=== PATIENT | male | born 1960 | race Caucasian/White ===

== ENCOUNTER → 2016-10-18 | Outpatient (CLI) | payer OTHER ==
[~2016-10-18] MED LIST: REGADENOSON INJ 0.4 MG/5 ML DISP.SYRIN IV ONE
--- NOTE | 2016-10-19 19:37 | DRAGON STRESS TEST REPORT ---
Intravenous LexiScan Cardiolite stress test using single photon emmision computerized tomographic. Date of procedure: 10/18/2016. Ordering Provider: Dr. Reg Murphy. Patient Status.: Outpatient. Primary CARE Physician: [facility]. [facility], [place]. Indication: Chest Pain. Patient has a history of coronary angioplasty and stent placement. Coronary risk factors: Age, diabetes mellitus type 2, hypertension, dyslipidemia, and tobacco abuse disorder Resting EKG: Sinus Rhythm. Within normal limits. Stress EKG: No changes of ischemia. The patient had no chest pain or discomfort, and there were no arrhythmias seen. Reason for termination: Protocol. Conclusions: Normal EKG and hemodynamic response to IV LexiScan. Nuclear data: At rest the patient was given 9.94 millicuries of technetium 99 sestamibi injected intravenously. As per protocol rest non gated SPECT images were obtained. Subsequently the patient was given intravenous LexiScan at a dose of 0.4 mg in 5 mL intravenously, followed by flush with normal saline. Subsequently the stress dose of 32.6 millicuries of technetium 99 sestamibi was injected intravenously. As per protocol stress gated images were obtained. Nuclear interpretation: Review of images showed that all segments of the myocardium had normal perfusion at rest, and normal perfusion post stress with IV LexiScan. All segments of the myocardium had normal motion, contraction, and thickening by gated study. T. I D. ratio was normal at 1.04 computer read rest, and stress left ventricular ejection fraction were 48 %, and 48 % respectively. Visually both the stress and rest ejection fractions were normal, and greater than 55%. 1. There is no scintigraphic evidence of LexiScan induced myocardial ischemia. 2. There is no scintigraphic evidence of myocardial infarction/scar. Recommendations: Aggressive treatment of coronary artery disease, and aggressive risk factor modification, and treating the underlying co- morbidities. Correlate clinically. MTDD
== END ==
LOC: RAD 07:13
PROVIDERS: ATTEND Internal Medicine Cardiovascular Disease
DX: I25.10 Atherosclerotic heart disease of native coronary artery without angina pectoris (principal); Z98.61 Coronary angioplasty status; R07.9 Chest pain, unspecified; I10 Essential (primary) hypertension; E78.5 Hyperlipidemia, unspecified; E11.9 Type 2 diabetes mellitus without complications
CPT/HCPCS: 93017; 78452; A9500; J2785; Q9969

== ENCOUNTER → 2016-11-02 | Outpatient (CLI) | payer OTHER ==
[2016-11-02 11:29] LABS: ABSOLUTE EOSINOPHILS # (AUTO) 0.1 10^3/uL (0.0-0.6); ABSOLUTE LYMPHOCYTES (AUTO) 1.6 10^3/uL (0.5-4.7); ABSOLUTE MONOCYTES (AUTO) 0.5 10^3/uL (0.1-1.4); ABSOLUTE NEUT (AUTO) 6.4 10^3/uL (1.7-8.2); BASOPHILS % (AUTO) 0.5 % (0-2); HEMATOCRIT 38.9 % (37.9-51.0); HEMOGLOBIN 13.2 g/dL (13.5-17.0); HGB HCT DIFFERENCE 0.7; LYMPHOCYTES % (AUTO) 18.4 % (13-45); MEAN CORPUSCULAR HEMOGLOBIN 29.6 pg (27.0-33.4); MEAN CORPUSCULAR HGB CONC 33.8 g/dL (32.0-36.0); MEAN CORPUSCULAR VOLUME 88 fl (80-97); MONOCYTES % (AUTO) 5.3 % (3-13); RED BLOOD COUNT 4.45 10^6/uL (4.35-5.55); RED CELL DISTRIBUTION WIDTH 15.4 % (11.5-14.0); SEGMENTED NEUTROPHILS % (AUTO) 74.8 % (42-78); WHITE BLOOD COUNT 8.5 10^3/uL (4.0-10.5)
[2016-11-02 11:53] LABS: ANION GAP 9 (5-19); BLOOD UREA NITROGEN 13 mg/dL (7-20); CALCIUM 9.1 mg/dL (8.4-10.2); CARBON DIOXIDE 27 mmol/L (22-30); CHLORIDE 104 mmol/L (98-107); CREATININE RESULT 0.74 mg/dL (0.52-1.25); GLUCOSE 114 mg/dL (75-110); POTASSIUM 3.9 mmol/L (3.6-5.0); SODIUM 139.8 mmol/L (137-145)
--- NOTE | 2016-11-02 11:57 | RADIOLOGY REPORT (SQ) ---
EXAM DESCRIPTION: CHEST PA/LATERAL COMPLETED DATE/TIME: 11/02/2016 11:10 am REASON FOR STUDY: PRE OP COMPARISON: October 2014 EXAM PARAMETERS: NUMBER OF VIEWS: two views TECHNIQUE: Digital Frontal and Lateral radiographic views of the chest acquired. RADIATION DOSE: NA LIMITATIONS: none FINDINGS: LUNGS AND PLEURA: No opacities, masses or pneumothorax. No pleural effusion. MEDIASTINUM AND HILAR STRUCTURES: No masses or contour abnormalities. HEART AND VASCULAR STRUCTURES: Heart normal size. No evidence for failure. BONES: No acute findings. HARDWARE: Patient is status post median sternotomy. OTHER: No other significant finding. IMPRESSION: NO SIGNIFICANT RADIOGRAPHIC FINDING IN THE CHEST. TECHNICAL DOCUMENTATION: JOB ID: [id number] [employer]- All Rights Reserved
--- NOTE | 2016-11-02 18:44 | EKG REPORT ---
SEVERITY:- ABNORMAL ECG - SINUS OR ECTOPIC ATRIAL RHYTHM NONSPECIFIC INTRAVENTRICULAR CONDUCTION DELAY INFERIOR INFARCT, AGE INDETERMINATE : Confirmed by: Mario Rai MD 02-Nov-2016 18:43:21
== END ==
LOC: OD 10:35
PROVIDERS: ATTEND Orthopaedic Surgery
DX: E11.9 Type 2 diabetes mellitus without complications (principal)
CPT/HCPCS: 36415; 71020; 80048; 85025; 93005; 93010

== ENCOUNTER 2017-02-16 16:41 | Emergency (ER) | payer OTHER ==
--- NOTE | 2017-02-16 17:50 | ER Document Report ---
ED General - General Chief Complaint: Back Pain Stated Complaint: LOWER BACK PAIN Time Seen by Provider: 02/16/17 17:16 Mode of Arrival: Ambulatory Information source: Patient Notes: 56-year-old male presents to ED for complaint of having pain from his neck to his coccyx that is chronic with sciatic go worse on the left. He states last night he went to play pool when he came home both of his hands were trembling he had tingling in his hands he was stumbling around trying to get his bed clothes on but he was able to playful. He states he was not drinking. He states this morning he woke up and the pain was worse in his hands were shaking again. He states he has been having abdominal pain off and on for about a year with no nausea or vomiting but he has had diarrhea alternating with constipation. He states he has had multiple heart attacks high blood pressure and cholesterol. He states he has had 2 bypass surgeries stents but has had a negative stress test about 6 months ago. He states he had a knee surgery after his negative stress test and has a history of 3 knee surgeries on the right and one on the left. States she has had an endoscopy and a colonoscopy in the last 1 was negative. He states he has a history of diverticulitis but his last CT showed no diverticulitis just diverticulosis. He is on pain management with tramadol baclofen and Celebrex. He states he has degenerative disc disease from the top to the bottom with surgery to the cervical spine with disc remove still plates and screws in his neck. States he has had a right inguinal hernia repair and needs a left one. States he has a history of high blood pressure cholesterol and diabetes. He also has migraines that he takes Botox shots for. TRAVEL OUTSIDE OF THE [place] IN LAST 30 DAYS: No - HPI Onset: Other - Chronic back pain worse last night and today Onset/Duration: Persistent Quality of pain: Burning, Sharp, Throbbing Severity: Severe Pain Level: 5 Associated symptoms: Other - See above Exacerbated by: Sitting, Movement, Walking Relieved by: Denies Similar symptoms previously: Yes Recently seen / treated by doctor: Yes - Related Data Allergies/Adverse Reactions: cymbalta Allergy (Mild, Uncoded 02/16/17 16:45) Generalized Itching Past Medical History - General Information source: Patient - Social History Smoking Status: Current Every Day Smoker Cigarette use (# per day): Yes - Pack per day Chew tobacco use (# tins/day): No Smoking Education Provided: Yes - Less than 2 minutes Frequency of alcohol use: None Drug Abuse: None Occupation: Disabled Lives with: Parents Family History: Reviewed & Not Pertinent Patient has suicidal ideation: No Patient has homicidal ideation: No - Past Medical History Cardiac Medical History: Reports: Hx Heart Attack - Multiple, Hx Hypercholesterolemia, Hx Hypertension Pulmonary Medical History: Reports: Hx COPD EENT Medical History: Reports: None Neurological Medical History: Reports: Hx Migraine Endocrine Medical History: Reports: Hx Diabetes Mellitus Type 2 Renal/ Medical History: Reports: None Malignancy Medical History: Reports None GI Medical History: Reports: Hx Diverticulitis, Hx Gastritis, Hx Gastroesophageal Reflux Disease, Hx Hiatal Hernia, Hx Irritable Bowel, Hx Colonoscopy, Hx Endoscopy Musculoskeltal Medical History: Reports Hx Arthritis, Reports Hx Fibromyalgia, Reports Hx Musculoskeletal Deformity, Reports Hx Musculoskeletal Trauma Skin Medical History: Reports None Psychiatric Medical History: Reports: Hx Anxiety, Hx Depression Traumatic Medical History: Reports: Hx Fractures Infectious Medical History: Reports: None Past Surgical History: Reports: Hx Cardiac Catheterization - stent placed, Hx Coronary Artery Bypass Graft - 2, Hx Coronary Stent - 2, Hx Inguinal Hernia - Right, Hx Orthopedic Surgery - fusion of c5-c6, right knee surgery 3 left knee surgery 1 Carpal Tunl.x2 - Immunizations Hx Diphtheria, Pertussis, Tetanus Vaccination: Yes Hx Pneumococcal Vaccination: 01/19/13 Review of Systems - Review of Systems Constitutional: No symptoms reported EENT: No symptoms reported Cardiovascular: No symptoms reported Respiratory: No symptoms reported Gastrointestinal: Abdominal pain, Diarrhea. denies: Constipation, Fecal incontinence Genitourinary: No symptoms reported. denies: Incontinence, Retention Male Genitourinary: No symptoms reported Musculoskeletal: Back pain, Muscle pain, Muscle stiffness Skin: No symptoms reported Hematologic/Lymphatic: No symptoms reported Neurological/Psychological: Tingling. denies: Weakness, Gait changes, Loss of power -: Yes All other systems reviewed and negative Physical Exam - Vital signs Vitals: Temp Pulse Resp BP Pulse Ox 97.6 F 82 18 127/82 H 93 02/16/17 16:44 02/16/17 16:44 02/16/17 16:44 02/16/17 16:44 02/16/17 16:44 Interpretation: Normal - General General appearance: Appears well, Alert - HEENT Head: Normocephalic, Atraumatic Eyes: Normal Pupils: PERRL - Respiratory Respiratory status: No respiratory distress Chest status: Nontender Breath sounds: Normal Chest palpation: Normal - Cardiovascular Rhythm: Regular Heart sounds: Normal auscultation Murmur: No - Abdominal Inspection: Normal Distension: No distension Bowel sounds: Hyperactive Tenderness: Tender - left abdominal tenderness Organomegaly: No organomegaly - Back Back: Normal, Tender, Vertebra tenderness, Scars. No: Deformity/step-off, CVA tenderness, Scoliosis, Wounds - Extremities General upper extremity: Normal inspection, Nontender, Normal color, Normal ROM , Normal temperature General lower extremity: Normal inspection, Nontender, Normal color, Normal ROM , Normal temperature, Normal weight bearing. No: Jorge's sign - Neurological Neuro grossly intact: Yes Cognition: Normal Orientation: AAOx4 Vickey Coma Scale Eye Opening: Spontaneous Vickey Coma Scale Verbal: Oriented Vickey Coma Scale Motor: Obeys Commands Vickey Coma Scale Total: 15 Speech: Normal Motor strength normal: LUE, RUE, LLE, RLE Sensory: Normal - Psychological Associated symptoms: Normal affect, Normal mood - Skin Skin Temperature: Warm Skin Moisture: Dry Skin Color: Normal Course - Re-evaluation Re-evalutation: 02/16/17 21:[address] and labs with patient and written reports of CT and labs given to patient before discharge. Patient instructed to follow-up with his primary doctor. Patient instructed to take his chronic pain medicines when he gets home. Patient also encouraged to try Aspercreme to the back once a day for pain control. - Vital Signs Vital signs: Temp Pulse Resp BP Pulse Ox 98.6 F 78 18 130/88 H 96 02/16/17 20:43 02/16/17 20:43 02/16/17 16:44 02/16/17 20:43 02/16/17 20:43 - Laboratory Result Diagrams: 02/16/17 17:43 02/16/17 17:52 Laboratory results interpreted by me: 02/16/17 02/16/17 17:43 17:52 WBC 13.1 H RDW 14.7 H Seg Neutrophils % 83.6 H Lymphocytes % 10.8 L Absolute Neutrophils 10.9 H Sodium 145.2 H Potassium 3.4 L - Diagnostic Test Radiology reviewed: Image reviewed, Reports reviewed Discharge - Discharge Clinical Impression: Chronic back pain Qualifiers: Back pain location: low back pain Back pain laterality: bilateral Sciatica presence: with sciatica Sciatica laterality: bilateral sciatica Qualified Code(s ): M54.42 - Lumbago with sciatica, left side Abdominal pain Qualifiers: Abdominal location: unspecified location Qualified Code(s): R10.9 - Unspecified abdominal pain Condition: Stable Disposition: HOME, SELF-CARE Additional Instructions: Chronic Back Pain Chronic back pain (pain persisting longer than three months) is a common problem. A medical evaluation can look for herniated disc, arthritis, osteoporosis, tumors, and infections. But at least half the time, there's no obvious treatable cause. Anxiety and depression tend to worsen back pain. Ibuprofen or other anti-inflammatory medicine can help. A heating pad, used for 15-20 minutes at a time, can ease pain. For this type of back pain, narcotic medicines should be avoided. Muscle relaxers are rarely helpful unless you're having spasms. Activity is important. Find an aerobic exercise program that your back can tolerate. Too much rest makes back pain worse. Specific back exercises are usually prescribed to strengthen the back and abdominal muscles. Often, a physical therapist can help. Avoid heavy lifting, working while bent over, or standing with both knees straight. Most back pain patients do better with a firm mattress. If new symptoms of a "herniated disc" (radiation of pain, numbness, or tingling down the back of the leg or weakness in the leg) occur, you should be re-examined. ABDOMINAL PAIN: There are many causes of abdominal pain. Pain can mean a serious problem requiring surgery (such as appendicitis). It can also be an innocent problem that goes away on its own (such as a viral infection). Often, time must pass to determine the cause of pain. The physician does not feel that hospitalization is necessary, at present. Things may change within the next 24 hours. Call the doctor or come back for re- examination if any problems occur, such as: (1) Pain that becomes more severe, steady, or becomes concentrated in one specific area. Also, pain that is more severe with movement or coughing. (2) Vomiting that persists or becomes more frequent. (3) Blood in the vomitus, urine, or bowel movements. Blood in the stool may have a tarry or black appearance. (4) Shaking chills or fever greater than 100 degrees F. (5) The abdomen becomes more distended or swollen. (6) Bowel movements cease. (7) Failure to improve as expected. Chronic Pain Control Stress, inactivity, and depression make pain more severe regardless of the cause of the pain. Stress and poor physical condition can cause pain such as headaches and backache. Relaxation: Rest in a quiet place with your eyes closed for 20 minutes twice daily. Concentrate on a pleasant image, or simply "feel" your breathing. Clear your mind. Stress management: Deal with your "stressors." Either take action, or eliminate the stressor from your life. Don't let things hang over you. Accept those things you can't change. Nutrition: Eat small, balanced meals -- don't skip, don't overeat. Meals should be high-carbohydrate, low-sugar, low-fat. Exercise: Exercise helps painful conditions and eases stress. Get 30 minutes of moderate exercise, five days a week. Do an activity that does not flare your pain. Precautions: Pain which continues to disrupt daily activities, or which changes in nature, requires a medical evaluation. Pain Clinic referral is available. We do not manage chronic pain in the Emergency Department. We will try to appropriately help you through an acute flare of your chronic painful condition , but for on-going chronic pain that does not improve, you will need to see your private doctor or paint booth operator. We do not provide repeated medication management of chronic painful conditions. If you wish, we can provide the name of local pain management physicians. Acetaminophen Acetaminophen may be taken for pain relief or fever control. It's much safer than aspirin, offering a wider range of "safe" dosages. It is safe during . Some brand names are Tylenol, Panadol, Datril, Anacin 3, Tempra, and Liquiprin. Acetaminophen can be repeated every four hours. The following are maximum recommended dosages: WEIGHT Dose Drops Elixir Chewable( 80mg) (LBS.) drprs=droppers tsp=teaspoon 6 40 mg .4 ml (1/2) 6-11 80 mg .8 ml (full) 1/2 tsp 1 tab 12-16 120 mg 1 1/2 drprs 3/4 tsp 1 1/2 tabs 17-23 160 mg 2 drprs 1 tsp 2 tabs 24-30 240 mg 3 drprs 1 1/2 tsp 3 tabs 30-35 320 mg 2 tsp 4 tabs 36-41 360 mg 2 1/4 tsp 4 1 /2 tabs 42-47 400 mg 2 1/2 tsp 5 tabs 48-53 480 mg 3 tsp 6 tabs 54-59 520 mg 3 1/4 tsp 6 1 /2 tabs 60-64 560 mg 3 1/2 tsp 7 tabs 65-70 600 mg 3 3/4 tsp 7 1 /2 tabs 71-76 640 mg 4 tsp 8 tabs 77-82 720 mg 4 1/2 tsp 9 tabs 83-88 800 mg 5 tsp 10 tabs >89 pounds or adults 650 mg to 900 mg Acetaminophen can be repeated every four hours. Maximum daily dose not to exceed 4000 mg. These maximum recommended dosages are slightly higher than the dosages written on the product container, but these dosages are very safe and well below the toxic dosage for acetaminophen. Continue with your current chronic pain management medications and all your other medications that you take. Follow-up with your primary doctor. There is no acute process on your abdominal/pelvis CT. FOLLOW-UP CARE: If you have been referred to a physician for follow-up care, call the physician s office for an appointment as you were instructed or within the next two days. If you experience worsening or a significant change in your symptoms, notify the physician immediately or return to the Emergency Department at any time for re-evaluation. Forms: Elevated Blood Pressure, Smoking Cessation Education Referrals: KARMA YOUNG, [facility] [Primary Care Provider] - Follow up as needed
[2017-02-16 18:06] LABS: ABSOLUTE BASOPHILS # (AUTO) 0.1 10^3/uL (0.0-0.2); ABSOLUTE EOSINOPHILS # (AUTO) 0.1 10^3/uL (0.0-0.6); ABSOLUTE LYMPHOCYTES (AUTO) 1.4 10^3/uL (0.5-4.7); ABSOLUTE MONOCYTES (AUTO) 0.6 10^3/uL (0.1-1.4); ABSOLUTE NEUT (AUTO) 10.9 10^3/uL (1.7-8.2); BASOPHILS % (AUTO) 0.4 % (0-2); EOSINOPHILS % (AUTO) 0.8 % (0-6); HEMATOCRIT 41.3 % (37.9-51.0); HEMOGLOBIN 14.3 g/dL (13.5-17.0); HGB HCT DIFFERENCE 1.6; LYMPHOCYTES % (AUTO) 10.8 % (13-45); MEAN CORPUSCULAR HEMOGLOBIN 30.3 pg (27.0-33.4); MEAN CORPUSCULAR HGB CONC 34.5 g/dL (32.0-36.0); MEAN CORPUSCULAR VOLUME 88 fl (80-97); MONOCYTES % (AUTO) 4.4 % (3-13); RED BLOOD COUNT 4.71 10^6/uL (4.35-5.55); RED CELL DISTRIBUTION WIDTH 14.7 % (11.5-14.0); SEGMENTED NEUTROPHILS % (AUTO) 83.6 % (42-78); WHITE BLOOD COUNT 13.1 10^3/uL (4.0-10.5)
[2017-02-16 19:20] LABS: APPEARANCE,URINE CLEAR; BILIRUBIN,URINE NEGATIVE (NEGATIVE); GLUCOSE, URINE NEGATIVE (NEGATIVE); KETONES,URINE NEGATIVE (NEGATIVE); LEUKOCYTE ESTERASE,URINE NEGATIVE (NEGATIVE); NITRITE,URINE NEGATIVE (NEGATIVE); PROTEIN,URINE NEGATIVE (NEGATIVE); URINE SPECIFIC GRAVITY 1.005; UROBILINOGEN,URINE NEGATIVE mg/dL (<2.0)
[2017-02-16 19:21] LABS: ALANINE AMINOTRANSFERASE 23 U/L (21-72); ALBUMIN 4.8 g/dL (3.5-5.0); ALKALINE PHOSPHATASE 123 U/L (38-126); ANION GAP 15 (5-19); ASPARTATE AMINO TRANSFERASE 26 U/L (17-59); BILIRUBIN,DIRECT 0.3 mg/dL (0.0-0.4); BILIRUBIN,TOTAL 0.5 mg/dL (0.2-1.3); BLOOD UREA NITROGEN 8 mg/dL (7-20); CALCIUM 9.7 mg/dL (8.4-10.2); CARBON DIOXIDE 27 mmol/L (22-30); CHLORIDE 103 mmol/L (98-107); GLUCOSE 94 mg/dL (75-110); LIPASE 33.4 U/L (23-300); POTASSIUM 3.4 mmol/L (3.6-5.0); SODIUM 145.2 mmol/L (137-145); TOTAL PROTEIN 7.6 g/dL (6.3-8.2)
--- NOTE | 2017-02-16 20:18 | RADIOLOGY REPORT (SQ) ---
EXAM DESCRIPTION: CT ABD/PELVIS WITH IV ONLY COMPLETED DATE/TIME: 02/16/2017 7:57 pm REASON FOR STUDY: left abdominal pain COMPARISON: None. TECHNIQUE: CT scan of the abdomen and pelvis performed using helical scanning technique with dynamic intravenous contrast injection. No oral contrast. Images reviewed with lung, soft tissue, and bone windows. Reconstructed coronal and sagittal MPR images reviewed. Delayed images for evaluation of the urinary system also acquired. All images stored on PACS. All CT scanners at this facility use dose modulation, iterative reconstruction, and/or weight based d osing when appropriate to reduce radiation dose to as low as reasonably achievable (ALARA). [facility]: Dose Right [facility]: CareDose [facility]: Dose Right [facility]: Teradose 4D [facility]: [employer] CONTRAST TYPE AND DOSE: contrast/concentration: Isovue 370.00 mg/ml; Total Contrast Delivered: 68.0 ml; Total Saline Delivered: 40.0 ml RENAL FUNCTION: GFR > 60. RADIATION DOSE: Up-to-date CT equipment and radiation dose reduction techniques were employed. CTDIv ol: 5.1 - 6.7 mGy. DLP: 569 mGy-cm.. LIMITATIONS: None. FINDINGS: LOWER CHEST: No significant findings. No nodules or infiltrates. LIVER: Normal size. No masses. No dilated ducts. SPLEEN: Normal size. No focal lesions. PANCREAS: No masses. No significant calcifications. No adjacent inflammation or peripancreatic fluid collections. Pancreatic duct not dilated. GALLBLADDER: No identified stones by CT criteria. No inflammatory changes to suggest cholecystitis. ADRENAL GLANDS: No significant masses or asymmetry. RIGHT KIDNEY AND URETER: No solid masses. No significant calcifications. No hydronephrosis or hyd roureter. LEFT KIDNEY AND URETER: No solid masses. No significant calcifications. No hydronephrosis or hydr oureter. AORTA AND VESSELS: Calcified and noncalcified plaque throughout. No aneurysm. No dissection. Renal a rteries, SMA, celiac without stenosis. RETROPERITONEUM: No retroperitoneal adenopathy, hemorrhage or masses. BOWEL AND PERITONEAL CAVITY: No masses or inflammatory changes. No free fluid or peritoneal masses. APPENDIX: Normal. PELVIS: No mass. No free fluid. Distended bladder without inflammatory change. ABDOMINAL WALL: No masses. Tiny fat containing periumbilical hernia. BONES: Mild levoscoliosis of the lumbar spine. Mild multilevel degenerative disc disease without fra cture or suspicious osseous lesion. OTHER: No other significant finding. IMPRESSION: NO ACUTE PROCESS IDENTIFIED WITHIN THE ABDOMEN OR PELVIS. THE BLADDER IS DISTENDED WITH OUT INFLAMMATION. CORRELATE WITH CLINICAL EVIDENCE OF URINARY RETENTION. ADDITIONAL CHRONIC CHANGES ABOVE. TECHNICAL DOCUMENTATION: JOB ID: [id number] Quality ID # [id number]: Final reports with documentation of one or more dose reduction techniques (e.g., Au tomated exposure control, adjustment of the mA and/or kV according to patient size, use of iterative reconstruction technique) 2010 [employer]- All Rights Reserved
[2017-02-16 20:46] VITALS: BP 130/88
== END 2017-02-16 20:43 | disposition home or self-care (01) ==
LOC: ER 16:41
DX: G89.29 Other chronic pain (principal); M54.42 Lumbago with sciatica, left side; M54.41 Lumbago with sciatica, right side; M54.2 Cervicalgia; R20.2 Paresthesia of skin; R10.9 Unspecified abdominal pain; R19.7 Diarrhea, unspecified; I10 Essential (primary) hypertension; E11.9 Type 2 diabetes mellitus without complications; I25.2 Old myocardial infarction; J44.9 Chronic obstructive pulmonary disease, unspecified; G43.909 Migraine, unspecified, not intractable, without status migrainosus; F17.210 Nicotine dependence, cigarettes, uncomplicated; Z71.6 Tobacco abuse counseling; Z87.19 Personal history of other diseases of the digestive system; Z79.891 Long term (current) use of opiate analgesic; Z79.899 Other long term (current) drug therapy; Z98.890 Other specified postprocedural states; Z95.1 Presence of aortocoronary bypass graft; Z95.5 Presence of coronary angioplasty implant and graft
CPT/HCPCS: 36415; 74177; 80053; 81001; 83690; 85025; 99284

== ENCOUNTER 2017-07-09 01:33 | Emergency (ER) | payer OTHER ==
[2017-07-09] MEDS ORDERED: KETOROLAC TROMETHAMINE INJ/PF 30 MG/1 ML SDV IV ONE (02:01)
[2017-07-09] MEDS ORDERED: NORMAL SALINE 1000 ML 1,000 ML IV ONE (02:01)
[2017-07-09] MEDS ORDERED: ONDANSETRON HCL INJ/PF 4 MG/2 ML SDV IV ONE (02:01)
--- NOTE | 2017-07-09 02:15 | ER Document Report ---
ED General - General Chief Complaint: Flank Pain Stated Complaint: ABDOMINAL PAIN Time Seen by Provider: 07/09/17 01:45 TRAVEL OUTSIDE OF THE [place] IN LAST 30 DAYS: No - HPI Patient complains to provider of: Multiple complaints Notes: Patient coming in for multiple complaints mostly stating that he is having right flank pain dysuria diarrhea ongoing for approximately a week with diffuse myalgias. He states that his mother at home was sick with something similar. Patient also complains of pain in his right groin where he had a hernia repair performed also complaining of chest burning. Patient denies fevers chills. Denies any nausea or vomiting. Resting comfortably upon my evaluation no signs of any obvious distress. Diarrhea is watery denies recent antibiotics. Denies recent travel. Otherwise pain on the right flank is achy in nature. - Related Data Allergies/Adverse Reactions: cymbalta Allergy (Mild, Uncoded 02/16/17 16:45) Generalized Itching Past Medical History - Social History Smoking Status: Current Every Day Smoker Chew tobacco use (# tins/day): No Frequency of alcohol use: None Drug Abuse: None Family History: Reviewed & Not Pertinent Patient has suicidal ideation: No Patient has homicidal ideation: No - Past Medical History Cardiac Medical History: Reports: Hx Heart Attack - Multiple, Hx Hypercholesterolemia, Hx Hypertension Pulmonary Medical History: Reports: Hx COPD Denies: Hx Tuberculosis Neurological Medical History: Reports: Hx Migraine Endocrine Medical History: Reports: Hx Diabetes Mellitus Type 2 Renal/ Medical History: Denies: Hx Peritoneal Dialysis GI Medical History: Reports: Hx Diverticulitis, Hx Gastritis, Hx Gastroesophageal Reflux Disease, Hx Hiatal Hernia, Hx Irritable Bowel, Hx Colonoscopy, Hx Endoscopy Musculoskeltal Medical History: Reports Hx Arthritis, Reports Hx Fibromyalgia, Reports Hx Musculoskeletal Deformity, Reports Hx Musculoskeletal Trauma Psychiatric Medical History: Reports: Hx Anxiety, Hx Depression Traumatic Medical History: Reports: Hx Fractures Past Surgical History: Reports: Hx Cardiac Catheterization - stent placed, Hx Cardiac Surgery - double bypass 2008, Hx Coronary Artery Bypass Graft - 2, Hx Coronary Stent - 2, Hx Inguinal Hernia - Right, Hx Orthopedic Surgery - fusion of c5-c6, right knee surgery 3 left knee surgery 1 Carpal Tunl.x2 - Immunizations Hx Diphtheria, Pertussis, Tetanus Vaccination: Yes Hx Pneumococcal Vaccination: 01/19/13 Review of Systems - Review of Systems Constitutional: No symptoms reported EENT: No symptoms reported Cardiovascular: No symptoms reported Respiratory: No symptoms reported Gastrointestinal: Abdominal pain, Diarrhea Genitourinary: No symptoms reported Male Genitourinary: No symptoms reported Musculoskeletal: Other - Flank pain Skin: No symptoms reported Hematologic/Lymphatic: No symptoms reported Neurological/Psychological: No symptoms reported -: Yes All other systems reviewed and negative Physical Exam - Vital signs Vitals: Resp BP 13 151/93 H 07/09/17 01:53 07/09/17 01:53 Interpretation: Normal - General General appearance: Appears well, Alert - HEENT Head: Normocephalic, Atraumatic Eyes: Normal Pupils: PERRL - Respiratory Respiratory status: No respiratory distress Chest status: Nontender Breath sounds: Normal Chest palpation: Normal - Cardiovascular Rhythm: Regular Heart sounds: Normal auscultation Murmur: No - Abdominal Inspection: Normal Distension: No distension Bowel sounds: Normal Tenderness: Nontender Organomegaly: No organomegaly - Rectal Prostate: Enlarged - Genitourinary Inspection: Normal Tenderness: Nontender Cremasteric reflex: Normal Scrotum: Normal - Back Back: Normal, Tender - Tenderness palpation of the right flank - Extremities General upper extremity: Normal inspection, Nontender, Normal color, Normal ROM , Normal temperature General lower extremity: Normal inspection, Nontender, Normal color, Normal ROM , Normal temperature, Normal weight bearing. No: Jorge's sign - Neurological Neuro grossly intact: Yes Cognition: Normal Orientation: AAOx4 [place] Coma Scale Eye Opening: Spontaneous [place] Coma Scale Verbal: Oriented [place] Coma Scale Motor: Obeys Commands [place] Coma Scale Total: 15 Speech: Normal Motor strength normal: LUE, RUE, LLE, RLE Sensory: Normal - Psychological Associated symptoms: Normal affect, Normal mood - Skin Skin Temperature: Warm Skin Moisture: Dry Skin Color: Normal Course - Re-evaluation Re-evalutation: 07/09/17 05:38 The patient presents with abdominal pain without signs of peritonitis or other life-threatening or serious etiology. The patient appears stable for discharge and has been instructed to return immediately if the symptoms worsen in any way , or in 8-12hr if not improved for re-evaluation. The patient has been instructed to return if the symptoms worsen or change in any way. The patient has atypical chest pain as the patient's chest pain is not suggestive of pulmonary embolus, cardiac ischemia, aortic dissection, or other serious etiology. Given the extremely low risk of these diagnoses further testing and evaluation for these possibilities does not appear to be indicated at this time. The patient has been instructed to return if the symptoms worsen or change in any way. - Vital Signs Vital signs: Temp Pulse Resp BP Pulse Ox 98.2 F 14 159/90 H 97 07/09/17 02:01 07/09/17 05:00 07/09/17 05:00 07/09/17 05:00 - Laboratory Result Diagrams: 07/09/17 02:20 07/09/17 02:24 Laboratory results interpreted by me: 07/09/17 02:20 RDW 14.4 H Discharge - Discharge Clinical Impression: Right flank pain, Enlarged prostate on rectal examination, Burning chest pain Diarrhea Qualifiers: Diarrhea type: unspecified type Qualified Code(s): R19.7 - Diarrhea, unspecified Condition: Good Disposition: HOME, SELF-CARE Instructions: Abdominal Pain ([facility]), Prostatic Hypertrophy ([facility]), Flomax ([facility]), Flank Pain ([facility]), Chest Pain of Unclear Cause ([facility]) Additional Instructions: Follow-up with your primary care physician. At this time your laboratory studies and CT scan did not show any signs of infection kidney stones causing obstruction (which cause pain, stone in the kidney do not cause pain). I recommend he follow-up with your primary care physician. Return to the ER if symptoms worsen. Please continue with your pain regimen at home. We recommend she can also take Tylenol and Motrin for your pain. Examination shows that your prostate is enlarged more likely causing some of his urinary issues. We will start you on medication called Flomax. I would highly recommend she follow-up with a urologist. Prescriptions: Tamsulosin HCl [Flomax 0.4 mg Cap.sr] 0.4 mg PO DAILY #14 cap.sr.24h Tamsulosin HCl [Flomax 0.4 mg Cap.sr] 0.4 mg PO DAILY #14 cap.sr.24h Forms: Return to Work
[2017-07-09 02:46] LABS: ABSOLUTE EOSINOPHILS # (AUTO) 0.1 10^3/uL (0.0-0.6); ABSOLUTE LYMPHOCYTES (AUTO) 1.8 10^3/uL (0.5-4.7); ABSOLUTE MONOCYTES (AUTO) 0.6 10^3/uL (0.1-1.4); ABSOLUTE NEUT (AUTO) 7.3 10^3/uL (1.7-8.2); BASOPHILS % (AUTO) 0.4 % (0-2); EOSINOPHILS % (AUTO) 1.4 % (0-6); HEMATOCRIT 44.6 % (37.9-51.0); HEMOGLOBIN 15.3 g/dL (13.5-17.0); LYMPHOCYTES % (AUTO) 18.2 % (13-45); MEAN CORPUSCULAR HEMOGLOBIN 30.2 pg (27.0-33.4); MEAN CORPUSCULAR HGB CONC 34.3 g/dL (32.0-36.0); MEAN CORPUSCULAR VOLUME 88 fl (80-97); PLATELET COUNT 220 10^3/uL (150-450); RED BLOOD COUNT 5.06 10^6/uL (4.35-5.55); RED CELL DISTRIBUTION WIDTH 14.4 % (11.5-14.0); TOTAL CELLS COUNTED % (AUTO) 100 %; WHITE BLOOD COUNT 9.9 10^3/uL (4.0-10.5)
--- NOTE | 2017-07-09 03:02 | RADIOLOGY REPORT (SQ) ---
EXAM DESCRIPTION: CT LTD RENAL STONE PROTOCOL ON CLINICAL HISTORY: 56 years Male, right flank pain COMPARISON: 02/16/17. TECHNIQUE: No contrast. Coronal and sagittal reformat. This exam was performed according to our departmental dose-optimization program, which includes automated exposure control, adjustment of the mA and/or kV according to patient size and/or use of iterative reconstruction technique. FINDINGS: Minimal bilateral perinephric fat stranding and punctate right renal stone. Punctate right renal stone. Mild L3-L4 disc desiccation. Moderate lumbar levoconvex. Sternotomy. Moderate coronary arterial calcification stent. 2 cm left inguinal fat only hernia. Atherosclerosis. Prominent notochordal remnant of this. L5 endplate and at the thoracolumbar junctional endplates, mild disc desiccation, small to moderate disc bulge/protrusion between the L3 and S1 levels cause [id number] spinal canal stenoses. Normal appendix. Unenhanced inferior chest, abdominopelvic structures, and musculoskeleton appear otherwise grossly unremarkable. IMPRESSION: Minimal perinephric fat stranding bilaterally which may indicate mild chronic medical renal disease, or pyelonephritis. Punctate right nephrolithiasis without obstruction.
[2017-07-09 03:07] LABS: ALANINE AMINOTRANSFERASE 31 U/L (21-72); ALBUMIN 4.4 g/dL (3.5-5.0); ALKALINE PHOSPHATASE 92 U/L (38-126); ANION GAP 9 (5-19); ASPARTATE AMINO TRANSFERASE 21 U/L (17-59); BILIRUBIN,DIRECT 0.4 mg/dL (0.0-0.4); BILIRUBIN,TOTAL 0.7 mg/dL (0.2-1.3); BLOOD UREA NITROGEN 10 mg/dL (7-20); CALCIUM 9.3 mg/dL (8.4-10.2); CARBON DIOXIDE 28 mmol/L (22-30); CHLORIDE 104 mmol/L (98-107); GLUCOSE 88 mg/dL (75-110); POTASSIUM 3.9 mmol/L (3.6-5.0); SODIUM 141.1 mmol/L (137-145); TOTAL PROTEIN 7.2 g/dL (6.3-8.2)
[2017-07-09] MEDS ORDERED: TAMSULOSIN HCL 0.4 MG CAP.SR.24H PO ONE (03:55)
[2017-07-09] MEDS ORDERED: LIDOCAINE 2% URO-JET 5 ML KIT MM ONE (03:57)
[2017-07-09 05:15] LABS: APPEARANCE,URINE CLEAR; BILIRUBIN,URINE NEGATIVE (NEGATIVE); COLOR,URINE YELLOW; GLUCOSE, URINE NEGATIVE (NEGATIVE); KETONES,URINE NEGATIVE (NEGATIVE); LEUKOCYTE ESTERASE,URINE NEGATIVE (NEGATIVE); NITRITE,URINE NEGATIVE (NEGATIVE); PROTEIN,URINE NEGATIVE (NEGATIVE); URINE SPECIFIC GRAVITY 1.006; UROBILINOGEN,URINE NEGATIVE mg/dL (<2.0)
[2017-07-09 05:51] VITALS: BP 145/99
--- NOTE | 2017-07-09 10:02 | EKG REPORT ---
SEVERITY:- ABNORMAL ECG - SINUS RHYTHM RIGHT ATRIAL ABNORMALITY BORDERLINE RIGHT AXIS DEVIATION BORDERLINE T ABNORMALITIES, INFERIOR LEADS : Confirmed by: Annia Dao 09-Jul-2017 10:02:06
== END 2017-07-09 05:50 | disposition home or self-care (01) ==
LOC: ER 01:33
DX: R10.9 Unspecified abdominal pain (principal); R07.9 Chest pain, unspecified; R19.7 Diarrhea, unspecified; N40.0 Benign prostatic hyperplasia without lower urinary tract symptoms; M79.1 Myalgia; R10.30 Lower abdominal pain, unspecified; R30.0 Dysuria; I10 Essential (primary) hypertension; I25.2 Old myocardial infarction; J44.9 Chronic obstructive pulmonary disease, unspecified; E11.9 Type 2 diabetes mellitus without complications; F17.200 Nicotine dependence, unspecified, uncomplicated; Z87.19 Personal history of other diseases of the digestive system; Z95.5 Presence of coronary angioplasty implant and graft; Z95.1 Presence of aortocoronary bypass graft; Z98.890 Other specified postprocedural states
CPT/HCPCS: 93005; 99284; 96361; 51701; 96374; 96375; 36415; 85025; 80053; 81001; 84484; 76380; 93010; J1885; J2405; J7030; J3490

== ENCOUNTER 2017-11-15 16:05 | Observation (INO) | payer OTHER ==
[2017-11-15] MEDS ORDERED: ASPIRIN 81 MG TABLET, CHEWABLE PO ONE (17:26)
--- NOTE | 2017-11-15 17:27 | ER Document Report ---
ED Medical Screen (RME) - General Chief Complaint: Chest Pain Stated Complaint: CHEST PAIN Time Seen by Provider: 11/15/17 17:26 Notes: 57 years old male with a history of multiple medical problems, presents today with left precordial chest pain on and off for the last 2 months. The today is more than usual associated with nausea. Was seen at the [place] [facility] and referred to the ED.. Denies any difficulty in breathing, diaphoresis, but get nauseous on and off. TRAVEL OUTSIDE OF THE [place] IN LAST 30 DAYS: No - Related Data Allergies/Adverse Reactions: cymbalta Allergy (Mild, Uncoded 02/16/17 16:45) Generalized Itching Past Medical History - Social History Chew tobacco use (# tins/day): No Frequency of alcohol use: None Drug Abuse: None - Past Medical History Cardiac Medical History: Reports: Hx Heart Attack - Multiple, Hx Hypercholesterolemia, Hx Hypertension Pulmonary Medical History: Reports: Hx COPD Denies: Hx Tuberculosis Neurological Medical History: Reports: Hx Migraine Endocrine Medical History: Reports: Hx Diabetes Mellitus Type 2 Renal/ Medical History: Denies: Hx Peritoneal Dialysis GI Medical History: Reports: Hx Diverticulitis, Hx Gastritis, Hx Gastroesophageal Reflux Disease, Hx Hiatal Hernia, Hx Irritable Bowel, Hx Colonoscopy, Hx Endoscopy Musculoskeltal Medical History: Reports Hx Arthritis, Reports Hx Fibromyalgia, Reports Hx Musculoskeletal Deformity, Reports Hx Musculoskeletal Trauma Psychiatric Medical History: Reports: Hx Anxiety, Hx Depression Traumatic Medical History: Reports: Hx Fractures Past Surgical History: Reports: Hx Cardiac Catheterization - stent placed, Hx Cardiac Surgery - double bypass 2008, Hx Coronary Artery Bypass Graft - 2, Hx Coronary Stent - 2, Hx Inguinal Hernia - Right, Hx Orthopedic Surgery - fusion of c5-c6, right knee surgery 3 left knee surgery 1 Carpal Tunl.x2 - Immunizations Hx Diphtheria, Pertussis, Tetanus Vaccination: Yes Physical Exam - Vital signs Vitals: Temp Pulse Resp BP Pulse Ox 98.1 F 66 16 135/81 H 98 11/15/17 16:29 11/15/17 16:29 11/15/17 16:29 11/15/17 16:29 11/15/17 16:29 Course - Vital Signs Vital signs: Temp Pulse Resp BP Pulse Ox 98.1 F 66 16 135/81 H 98 11/15/17 16:29 11/15/17 16:29 11/15/17 16:29 11/15/17 16:29 11/15/17 16:29
--- NOTE | 2017-11-15 18:33 | RADIOLOGY REPORT (SQ) ---
EXAM DESCRIPTION: CHEST SINGLE VIEW COMPLETED DATE/TIME: 11/15/2017 6:25 pm REASON FOR STUDY: Chest pain COMPARISON: 11/02/2016 NUMBER OF VIEWS: One view. TECHNIQUE: Single frontal radiographic view of the chest acquired. LIMITATIONS: None. FINDINGS: LUNGS AND PLEURA: No opacities, masses or pneumothorax. No pleural effusion. MEDIASTINUM AND HILAR STRUCTURES: No masses. Contour normal. HEART AND VASCULAR STRUCTURES: Heart normal in size. Normal vasculature. Prior CABG. BONES: No acute findings. HARDWARE: CABG hardware. OTHER: No other significant finding. IMPRESSION: NO SIGNIFICANT RADIOGRAPHIC FINDING IN THE CHEST. PRIOR CABG. TECHNICAL DOCUMENTATION: JOB ID: [id number] [employer]- All Rights Reserved Reading location - IP/workstation name: [email or web address]
--- NOTE | 2017-11-15 18:40 | ER Document Report ---
ED Cardiac - General Chief Complaint: Chest Pain Stated Complaint: CHEST PAIN Time Seen by Provider: 11/15/17 17:26 Notes: The patient is a 57-year-old male, past medical history CAD with CABG in 2008 and stents in 2010 and 2014, HTN, presents with 2 months of intermittent left upper chest pain that is worse with exertion. He went to his primary care physician at the [place] and was sent to the ER for further evaluation and treatment. Patient already took aspirin 324 mg at home prior to arrival. He has had this in the past and usually nitro helps it resolve. His last stress test and cardiac cath was 1 year ago, according to the patient. Patient denies nausea, vomiting, shortness of breath, back pain, leg swelling, hemoptysis, fevers, cough, numbness or tingling. TRAVEL OUTSIDE OF THE [place] IN LAST 30 DAYS: No - Related Data Allergies/Adverse Reactions: cymbalta Allergy (Mild, Uncoded 02/16/17 16:45) Generalized Itching Past Medical History - General Information source: Patient - Social History Smoking Status: Current Every Day Smoker Chew tobacco use (# tins/day): No Frequency of alcohol use: None Drug Abuse: None Family History: Reviewed & Not Pertinent Patient has suicidal ideation: No Patient has homicidal ideation: No - Past Medical History Cardiac Medical History: Reports: Hx Heart Attack - Multiple, Hx Hypercholesterolemia, Hx Hypertension Pulmonary Medical History: Reports: Hx COPD Denies: Hx Tuberculosis Neurological Medical History: Reports: Hx Migraine Endocrine Medical History: Reports: Hx Diabetes Mellitus Type 2 Renal/ Medical History: Denies: Hx Peritoneal Dialysis GI Medical History: Reports: Hx Diverticulitis, Hx Gastritis, Hx Gastroesophageal Reflux Disease, Hx Hiatal Hernia, Hx Irritable Bowel, Hx Colonoscopy, Hx Endoscopy Musculoskeletal Medical History: Reports Hx Arthritis, Reports Hx Fibromyalgia, Reports Hx Musculoskeletal Deformity, Reports Hx Musculoskeletal Trauma Psychiatric Medical History: Reports: Hx Anxiety, Hx Depression Traumatic Medical History: Reports: Hx Fractures Past Surgical History: Reports: Hx Cardiac Catheterization - stent placed, Hx Cardiac Surgery - double bypass 2008, Hx Coronary Artery Bypass Graft - 2, Hx Coronary Stent - 2, Hx Inguinal Hernia - Right, Hx Orthopedic Surgery - fusion of c5-c6, right knee surgery 3 left knee surgery 1 Carpal Tunl.x2 - Immunizations Hx Diphtheria, Pertussis, Tetanus Vaccination: Yes Hx Pneumococcal Vaccination: 01/19/13 Review of Systems - Review of Systems Notes: REVIEW OF SYSTEMS: CONSTITUTIONAL: -fevers, -chills EENT: -eye pain, -difficulty swallowing, -nasal congestion CARDIOVASCULAR: +chest pain, -syncope. RESPIRATORY: -cough, -SOB GASTROINTESTINAL: -abdominal pain, -nausea, -vomiting, -diarrhea GENITOURINARY: -dysuria, -hematuria MUSCULOSKELETAL: -back pain, -neck pain SKIN: -rash or skin lesions. HEMATOLOGIC: -easy bruising or bleeding. LYMPHATIC: -swollen, enlarged glands. NEUROLOGICAL: -altered mental status or loss of consciousness, -headache, - neurologic symptoms PSYCHIATRIC: -anxiety, -depression. ALL OTHER SYSTEMS REVIEWED AND NEGATIVE. Physical Exam - Vital signs Vitals: Temp Pulse Resp BP Pulse Ox 98.1 F 66 16 135/81 H 98 11/15/17 16:29 11/15/17 16:29 11/15/17 16:29 11/15/17 16:29 11/15/17 16:29 - Notes Notes: PHYSICAL EXAMINATION: GENERAL: Well-appearing, well-nourished and in no acute distress. HEAD: Atraumatic, normocephalic. EYES: Pupils equal round and reactive to light, extraocular movements intact, sclera anicteric, conjunctiva are normal. ENT: nares patent, oropharynx clear without exudates. Moist mucous membranes. NECK: Normal range of motion, supple without lymphadenopathy LUNGS: Breath sounds clear to auscultation bilaterally and equal. No wheezes rales or rhonchi. HEART: Regular rate and rhythm without murmurs ABDOMEN: Soft, nontender, normoactive bowel sounds. No guarding, no rebound. No masses appreciated. EXTREMITIES: Normal range of motion, no pitting or edema. No cyanosis. NEUROLOGICAL: Cranial nerves grossly intact. Normal speech, normal gait. Normal sensory and motor exams. PSYCH: Normal mood, normal affect. SKIN: Warm, Dry, normal turgor, no rashes or lesions noted. Course - Re-evaluation Re-evalutation: Patient appears well. After a single nitro, his chest pain completely resolved. His EKG does not show any acute ischemic changes and his first troponin is negative. His HEART score is 5. His symptoms are atypical for aortic dissection or PE at this time. Spoke to Dr. Collins and she has accepted the patient. Will bring patient in for Tele Obs for further evaluation and treatment. - Vital Signs Vital signs: Temp Pulse Resp BP Pulse Ox 98.1 F 66 18 178/100 H 97 11/15/17 16:29 11/15/17 16:29 11/15/17 22:30 11/15/17 22:30 11/15/17 22:30 - Laboratory Result Diagrams: 11/15/17 20:48 11/15/17 20:48 Laboratory results interpreted by me: 11/15/17 20:48 RDW 14.5 H - Diagnostic Test Radiology reviewed: Image reviewed, Reports reviewed Radiology results interpreted by me: CXR: NAD - EKG Interpretation by Me EKG shows normal: Sinus rhythm, [place], Intervals, QRS Complexes, ST-T Waves Rate: Normal [place]/QRS: Right axis deviation When compared to previous EKG there are: No significant change Discharge - Discharge Clinical Impression: Chest pain Qualifiers: Chest pain type: unspecified Qualified Code(s): R07.9 - Chest pain, unspecified Condition: Stable Disposition: ADMITTED OBSERVATION Admitting Provider: Hospitalist - [facility] Admitted: Telemetry Forms: Elevated Blood Pressure Referrals: CHAD GALAVIZ MD [ACTIVE STAFF] - Follow up as needed
[2017-11-15] MEDS ORDERED: NITROGLYCERIN 0.4 MG/TAB 25 TAB/BOTTLE SL PRN (18:59)
[2017-11-15 21:06] LABS: ABSOLUTE BASOPHILS # (AUTO) 0.1 10^3/uL (0.0-0.2); ABSOLUTE EOSINOPHILS # (AUTO) 0.1 10^3/uL (0.0-0.6); ABSOLUTE LYMPHOCYTES (AUTO) 2.3 10^3/uL (0.5-4.7); ABSOLUTE MONOCYTES (AUTO) 0.4 10^3/uL (0.1-1.4); ABSOLUTE NEUT (AUTO) 4.7 10^3/uL (1.7-8.2); BASOPHILS % (AUTO) 0.8 % (0-2); EOSINOPHILS % (AUTO) 1.3 % (0-6); HEMATOCRIT 43.2 % (37.9-51.0); HEMOGLOBIN 14.6 g/dL (13.5-17.0); LYMPHOCYTES % (AUTO) 30.3 % (13-45); MEAN CORPUSCULAR HEMOGLOBIN 29.6 pg (27.0-33.4); MEAN CORPUSCULAR HGB CONC 33.8 g/dL (32.0-36.0); MEAN CORPUSCULAR VOLUME 88 fl (80-97); MONOCYTES % (AUTO) 5.3 % (3-13); PLATELET COUNT 241 10^3/uL (150-450); RED BLOOD COUNT 4.93 10^6/uL (4.35-5.55); RED CELL DISTRIBUTION WIDTH 14.5 % (11.5-14.0); SEGMENTED NEUTROPHILS % (AUTO) 62.3 % (42-78); TOTAL CELLS COUNTED % (AUTO) 100 %; WHITE BLOOD COUNT 7.5 10^3/uL (4.0-10.5)
[2017-11-15 21:26] LABS: ALANINE AMINOTRANSFERASE 23 U/L (21-72); ALBUMIN 4.6 g/dL (3.5-5.0); ALKALINE PHOSPHATASE 106 U/L (38-126); ANION GAP 13 (5-19); ASPARTATE AMINO TRANSFERASE 26 U/L (17-59); BILIRUBIN,DIRECT 0.3 mg/dL (0.0-0.4); BILIRUBIN,TOTAL 0.7 mg/dL (0.2-1.3); BLOOD UREA NITROGEN 11 mg/dL (7-20); CALCIUM 9.4 mg/dL (8.4-10.2); CARBON DIOXIDE 30 mmol/L (22-30); CHLORIDE 102 mmol/L (98-107); CREATINE KINASE 123 U/L (55-170); GLUCOSE 86 mg/dL (75-110); SODIUM 144.6 mmol/L (137-145); TOTAL PROTEIN 7.7 g/dL (6.3-8.2)
[2017-11-15 21:40] LABS: CREATINE KINASE MB 2.17 ng/mL (<4.55)
[2017-11-15 21:41] LABS: TROPONIN I < 0.012 ng/mL
[2017-11-15] MEDS ORDERED: LISINOPRIL 10 MG TABLET PO ONE (22:08)
[2017-11-15] MEDS ORDERED: AMLODIPINE BESYLATE 5 MG TABLET PO ONE (22:08)
[2017-11-15] MEDS ORDERED: MAG HYDROX/AL HYDROX/SIMETH SUSP 30 ML UDCUP PO PRN (23:19)
[2017-11-15] MEDS ORDERED: ACETAMINOPHEN 325 MG TABLET PO PRN (23:19)
[2017-11-15] MEDS ORDERED: PROMETHAZINE HCL INJ 25 MG/1 ML VIAL IV PRN (23:19)
[2017-11-15] MEDS ORDERED: HYDRALAZINE HCL INJ/PF 20 MG/1 ML SDV IV ONE (23:24)
[2017-11-15] MEDS ORDERED: NICOTINE 21 MG/24 HR PATCH.TD24 TD ONE (23:26)
[2017-11-15] MEDS ORDERED: DEXTROSE 50%-WATER 25 GM/50 ML DISP.SYRIN IV PRN ×2 (23:27)
[2017-11-15] MEDS ORDERED: DEXTROSE 40% GEL 15 GM TUBE PO PRN ×2 (23:27)
[2017-11-15] MEDS ORDERED: INSULIN REG, HUMAN 100 UNIT/ML 3 ML VIAL (PYX) SUBCUT PRN (23:27)
[2017-11-15] MEDS ORDERED: GLUCAGON,HUMAN RECOMB 1 MG INJ IM PRN (23:27)
--- NOTE | 2017-11-16 | EKG REPORT ---
SEVERITY:- BORDERLINE ECG - SINUS RHYTHM BORDERLINE RIGHT AXIS DEVIATION BORDERLINE INFERIOR Q WAVES : Confirmed by: Dinora Sutherland MD 15-Nov-2017 23:58:05
[2017-11-16] MEDS ORDERED: DIAZEPAM 5 MG TABLET PO PRN (00:07)
[2017-11-16] MEDS ORDERED: NITROGLYCERIN 0.4 MG/TAB 25 TAB/BOTTLE SL PRN (00:13)
--- NOTE | 2017-11-16 00:17 | PDOC H&P ---
History of Present Illness Admission Date/PCP: 11/15/2017 Dr [facility] Patient complains of: chest tightness History of Present Illness: INOCENCIO BARRERA is a 57 year old male with medical history of coronary arterial disease, several KS's, 2 stents placed In 2010 and 2014, CABG 2008 with 2 bypasses. Patient tells me that for the last 3-4 months he has been having chest tightness every 2 weeks, described on the left side of his chest radiated to his left arm, going up to 7/10 intensity. Feels similar to his prior MIs but in less intensity. He also complains of muscular pain in the left chest has been becoming worse and worse over time. Chest tightness worsened with activity. Worsening shortness of breath. He usually is able to walk only half a block secondary to his chronic pain in back, hips, neck. He states he is having also diaphoresis on and off nonrelated with his chest tightness, day and night. Has lost 8 pounds in the last 6 months. Complains of abdominal cramps on and off, tells me he has been feeling really sick on and off and today his mother who is at the bedside brought him to the emergency department. His last lexicon stress test was a year ago and came back normal. His manufacturing engineer chief are Dr. Murphy in [facility] and Dr. Hirsch CT surgeon. Last colonoscopy 6 months ago with no malignancy. Troponins 1 negative, EKG with no acute changes. By the time I saw him he still has some mild chest pressure which partially improved with one sublingual nitroglycerin. Before coming to the ED went to his PCP in [facility] medical clinic who sent him here. Patient already took aspirin 325 mg at home. Complains of mild cough, chest congestion, head congestion and mild wheezing on and off, fortunately the patient is active smoker and smokes 1 pack per day. Denies fever, chills, nausea, vomiting, changes in his bowel movements or urine. Past Medical History Cardiac Medical History: Reports: Myocardial Infarction - 5 with 2 stents placed and CABG 2 bypasses, Hyperlipidema, Hypertension Pulmonary Medical History: Reports: Chronic Obstructive Pulmonary Disease (COPD) Denies: Tuberculosis Neurological Medical History: Reports: Migraine Endocrine Medical History: Reports: Diabetes Mellitus Type 2 GI Medical History: Reports: Diverticulitis, Gastroesophageal Reflux Disease, Hiatal Hernia Musculoskeltal Medical History: Reports: Arthritis, Fibromyalgia Psychiatric Medical History: Reports: Depression Past Surgical History Past Surgical History: Reports: Cardiac Catheterization - stent placed, Coronary Artery Bypass Graft - 2, Coronary Stent - 2, Orthopedic Surgery - fusion of c5-c6, right knee surgery 3 left knee surgery 1 Carpal Tunl.x2 Social History Smoking Status: Current Every Day Smoker Cigarettes Packs Per Day: 1 Frequency of Alcohol Use: Occasional Hx Recreational Drug Use: No Hx Prescription Drug Abuse: No Family History Family History: Reviewed & Not Pertinent Family History: Father diet on his 60s with a massive heart attack Parental Family History Reviewed: Yes - Mother at 73 had a history of CABG 3 Children Family History Reviewed: No Sibling(s) Family History Reviewed.: No Medication/Allergy Home Medications: Lisinopril [Prinivil 10 mg Tablet] 10 mg PO DAILY 12/15/12 Acetaminophen [Tylenol 325 mg Tablet] 650 mg PO Q6HP PRN 02/23/13 Amlodipine Besylate [Norvasc 2.5 mg Tablet] 2.5 mg PO DAILY 02/23/13 Aspirin 81 mg PO DAILY 02/23/13 Baclofen [Baclofen 10 mg Tablet] 10 mg PO TID 02/23/13 Diazepam [Valium 5 mg Tablet] 5 mg PO DAILY PRN 02/23/13 Gabapentin [Neurontin 300 mg Capsule] 300 mg PO TID 02/23/13 Potassium Chloride 10 meq PO DAILY 02/23/13 Celecoxib 200 mg PO BID 11/15/17 Fluticasone Propionate [Flonase Nasal [place] 50 Mcg/[place] 16 gm] 1 spray DAILY Lansoprazole 30 mg PO DAILY 11/15/17 Pregabalin [Lyrica] 300 mg PO BID 11/15/17 Sertraline HCl 150 mg PO DAILY 11/15/17 Terazosin HCl 2 mg PO HSP PRN 11/15/17 Tramadol HCl 50 - 100 mg PO BID PRN 11/15/17 Allergies/Adverse Reactions: cymbalta Allergy (Mild, Uncoded 02/16/17 16:45) Generalized Itching Review of Systems Review of Systems: As outlined in the HPI, all others negative Physical Exam Vital Signs: Temp Pulse Resp BP Pulse Ox 98.1 F 66 18 178/100 H 97 11/15/17 16:29 11/15/17 16:29 11/15/17 22:30 11/15/17 22:30 11/15/17 22:30 Intake & Output 11/14/17 11/15/17 11/16/17 06:59 06:59 06:59 Weight 57.9 kg Additional comments: General appearance: Cachectic, alert and cooperative, and appears to be in no acute distress Head: Normocephalic Eyes: PEERL, EOMI, vision is grossly intact. Ears: External auditory canal and tympanic membranes clear, hearing grossly intact. Nose: No nasal discharge. Throat: Oral cavity and pharynx normal. No inflammation, swelling, exudate or lesions. Poor dentititon Neck: Neck supple, nontender without lymphadenopathy, masses or thyromegaly. Cardiac: Normal S1 and S2. No S3, S4 or murmurs. Rhythm is regular. There is no peripheral edema, cyanosis or pallor. Extremities are warm and well perfused. Capillary refill is less than 2 seconds. No carotid bruits. Lungs: Bilateral diminished breath sounds, diffused rales, no rhonchi, mild expiratory wheezing . Not using accessory muscles. Abdomen: Positive bowel sounds. Soft. Nondistended, nontender. No guarding or rebound. No masses. No hepatosplenomegaly Extremities: No significant deformity or joint abnormality. No edema. Peripheral pulses intact. No varicosities. Neurological: Cranial nerves II through XII grossly intact. Strength and sensation symmetric and intact throughout. Reflexes 2+ throughout. Skin: Skin mild pallor, texture and turgor with no lesions or eruptions, warm and dry. Psychiatric: The mental examination revealed the patient was oriented to person , place, and time. The patient was able to demonstrate good judgment on recent , without hallucinations, abnormal affect or abnormal behaviors. Results Laboratory Results: 11/15/17 20:48 11/15/17 20:48 11/15/17 11/15/17 20:48 20:48 WBC 7.5 RBC 4.93 Hgb 14.6 Hct 43.2 MCV 88 MCH 29.6 MCHC 33.8 RDW 14.5 H Plt Count 241 Seg Neutrophils % 62.3 Lymphocytes % 30.3 Monocytes % 5.3 Eosinophils % 1.3 Basophils % 0.8 Absolute Neutrophils 4.7 Absolute Lymphocytes 2.3 Absolute Monocytes 0.4 Absolute Eosinophils 0.1 Absolute Basophils 0.1 Sodium 144.6 Potassium 4.0 Chloride 102 Carbon Dioxide 30 Anion Gap 13 BUN 11 Creatinine 0.61 Est GFR ( Amer) > 60 Est GFR (Non-Af Amer) > 60 Glucose 86 Calcium 9.4 Total Bilirubin 0.7 AST 26 ALT 23 Alkaline Phosphatase 106 Total Protein 7.7 Albumin 4.6 11/15/17 11/15/17 20:48 20:48 Creatine Kinase 123 CK-MB (CK-2) 2.17 Troponin I < 0.012 Impressions: Chest X-Ray 11/15/17 17:26 IMPRESSION: NO SIGNIFICANT RADIOGRAPHIC FINDING IN THE CHEST. PRIOR CABG. Assessment & Plan - Diagnosis (1) Chest pain Qualifiers: Chest pain type: unspecified Qualified Code(s): R07.9 - Chest pain, unspecified Is this a current diagnosis for this admission?: Yes Plan: Patient comes complaining of chest heaviness for the last 4 months every 2 weeks , not typical and associated with other symptoms. Patient had a stress test a year ago which was negative. Due to the high risk as he had several myocardial infarctions in the past and CABG 2, stents 2 we will go ahead and place him for pharmacological stress test. Telemetry monitoring. Cardiac markers 3. Nitroglycerin sublingual as needed for chest pain. So far troponins 1 negative and EKG no acute changes. Patient follows at [facility] (2) Diabetes mellitus type 2 in nonobese Is this a current diagnosis for this admission?: Yes Plan: He is not on antidiabetic medication at home, tells me that is well controlled. (3) Hypertension Qualifiers: Hypertension type: essential hypertension Qualified Code(s): I10 - Essential (primary) hypertension Is this a current diagnosis for this admission?: Yes Plan: Blood pressure in the emergency department 173/97, probably because he missed his 9 medications. I am resuming his home medications. Hydralazine IV as needed. (4) Tobacco dependence Is this a current diagnosis for this admission?: Yes Plan: Unfortunately continue to smoke 1 pack per day, order the codeine patch 21 mg a day. (5) Weight loss Is this a current diagnosis for this admission?: Yes Plan: Besides his cardiac symptomatology patient has orders like diaphoresis, weight loss, abdominal cramps, we can look for a different diagnosis as an outpatient as malignancy. Patient had a colonoscopy negative 6 months ago. - Time Time Spent: 30 to 50 Minutes
[2017-11-16] MEDS ORDERED: DOXAZOSIN MESYLATE 2 MG TABLET PO PRN (01:00)
[2017-11-16] MEDS ORDERED: TRAMADOL HCL 50 MG TABLET PO PRN ×2 (02:35→10:00)
[2017-11-16] MEDS: TRAMADOL HCL 50 MG TABLET PO PRN ×2 (02:42→09:27)
[2017-11-16 06:04] LABS: HEMATOCRIT 40.5 % (37.9-51.0); MEAN CORPUSCULAR HEMOGLOBIN 29.9 pg (27.0-33.4); MEAN CORPUSCULAR HGB CONC 34.4 g/dL (32.0-36.0); MEAN CORPUSCULAR VOLUME 87 fl (80-97); PLATELET COUNT 211 10^3/uL (150-450); RED BLOOD COUNT 4.68 10^6/uL (4.35-5.55); RED CELL DISTRIBUTION WIDTH 14.9 % (11.5-14.0); WHITE BLOOD COUNT 7.6 10^3/uL (4.0-10.5)
[2017-11-16 06:44] LABS: BLOOD UREA NITROGEN 13 mg/dL (7-20); CALCIUM 9.3 mg/dL (8.4-10.2); GLUCOSE 90 mg/dL (75-110)
[2017-11-16 06:45] LABS: ANION GAP 10 (5-19); CARBON DIOXIDE 28 mmol/L (22-30); CHLORIDE 105 mmol/L (98-107); POTASSIUM 3.8 mmol/L (3.6-5.0); SODIUM 143.4 mmol/L (137-145)
[2017-11-16] MEDS: BACLOFEN 10 MG TABLET PO SCH ×2 (09:26→13:37)
[2017-11-16] MEDS: GABAPENTIN 300 MG CAPSULE PO SCH ×2 (09:27→13:37)
[2017-11-16] MEDS ORDERED: ENOXAPARIN SODIUM INJ 40 MG/0.4 ML DISP.SYRIN SUBCUT SCH (10:00)
[2017-11-16] MEDS ORDERED: LANSOPRAZOLE 30 MG TAB.RAP.DR PO SCH (10:00)
[2017-11-16] MEDS ORDERED: CELECOXIB 200 MG CAPSULE PO SCH (10:00)
[2017-11-16] MEDS ORDERED: ASPIRIN 81 MG TABLET, CHEWABLE PO SCH (10:00)
[2017-11-16] MEDS ORDERED: PREGABALIN 100 MG CAPSULE PO SCH (10:00)
[2017-11-16] MEDS ORDERED: FLUTICASONE NASAL SPRAY 50 MCG/SPRY 120 SPRAY/16 GM NARER SCH (10:00)
[2017-11-16] MEDS ORDERED: SERTRALINE HCL 50 MG TABLET PO SCH (10:00)
[2017-11-16] MEDS ORDERED: AMLODIPINE BESYLATE 2.5 MG TABLET PO SCH (10:00)
[2017-11-16] MEDS ORDERED: POTASSIUM CHLORIDE 10 MEQ CAPSULE.ER PO SCH (10:00)
[2017-11-16] MEDS ORDERED: LISINOPRIL 10 MG TABLET PO SCH (10:00)
[2017-11-16 10:39] VITALS: BP 128/78
[2017-11-16] MEDS ORDERED: REGADENOSON INJ 0.4 MG/5 ML DISP.SYRIN IV ONE (11:34)
--- NOTE | 2017-11-21 20:30 | PDOC DISCHARGE SUMMARY ---
General - Admit/Disc Date/PCP Admission Date/Primary Care Provider: 11/15/17 23:35 Discharge Date: 11/16/17 - Discharge Diagnosis (1) Chest pain Is this a current diagnosis for this admission?: Yes (2) Diabetes mellitus type 2 in nonobese Is this a current diagnosis for this admission?: Yes (3) Hypertension Is this a current diagnosis for this admission?: Yes (4) Tobacco dependence Is this a current diagnosis for this admission?: Yes (5) Weight loss Is this a current diagnosis for this admission?: Yes - Additional Information Discharge Diet: As Tolerated Discharge Activity: Activity As Tolerated Home Medications: Baclofen [Baclofen 10 mg Tablet] 10 mg PO TID 02/23/13 Gabapentin [Neurontin 300 mg Capsule] 300 mg PO TID 02/23/13 Potassium Chloride 10 meq PO DAILY 02/23/13 Celecoxib 200 mg PO BID 11/15/17 Fluticasone Propionate [Flonase Nasal [place] 50 Mcg/[place] 16 gm] 1 spray NASL DAILYP PRN 11/15/17 Lansoprazole 30 mg PO DAILY 11/15/17 Pregabalin [Lyrica] 300 mg PO BID 11/15/17 Sertraline HCl 150 mg PO DAILY 11/15/17 Terazosin HCl 4 mg PO QHS 11/15/17 Tramadol HCl 50 mg PO BIDP PRN 11/15/17 Amitriptyline HCl [Elavil 25 mg Tablet] 25 mg PO QHS 11/16/17 Amlodipine Besylate [Norvasc 10 mg Tablet] 10 mg PO DAILY 11/16/17 Aspirin [Aspirin EC] 81 mg PO DAILY 11/16/17 Carboxymethylcellulose Sodium [Lubricant Eye Drops] 1 drop OU Q2HP PRN 11/16/17 Clopidogrel Bisulfate [Clopidogrel] 75 mg PO DAILY 11/16/17 Diazepam [Valium] 10 mg PO DAILYP PRN 11/16/17 Lisinopril [Prinivil] 10 mg PO DAILY 11/16/17 Onabotulinumtoxina [Botox] 200 unit IJ Q3M 11/16/17 Pravastatin Sodium [Pravachol] 40 mg PO QHS 11/16/17 History of Present Illness History of Present Illness: Per Dr. Devora Collins: INOCENCIO BARRREA is a 57 year old male with medical history of coronary arterial disease, several ID's, 2 stents placed In 2010 and 2014, CABG 2008 with 2 bypasses. Patient tells me that for the last 3-4 months he has been having chest tightness every 2 weeks, described on the left side of his chest radiated to his left arm, going up to 7/10 intensity. Feels similar to his prior MIs but in less intensity. He also complains of muscular pain in the left chest has been becoming worse and worse over time. Chest tightness worsened with activity. Worsening shortness of breath. He usually is able to walk only half a block secondary to his chronic pain in back, hips, neck. He states he is having also diaphoresis on and off nonrelated with his chest tightness, day and night. Has lost 8 pounds in the last 6 months. Complains of abdominal cramps on and off, tells me he has been feeling really sick on and off and today his mother who is at the bedside brought him to the emergency department. His last lexicon stress test was a year ago and came back normal. His glass forming crew member are Dr. Murphy in [facility] and Dr. Hirsch CT surgeon. Last colonoscopy 6 months ago with no malignancy. Troponins 1 negative, EKG with no acute changes. By the time I saw him he still has some mild chest pressure which partially improved with one sublingual nitroglycerin. Before coming to the ED went to his PCP in [facility] medical clinic who sent him here. Patient already took aspirin 325 mg at home. Complains of mild cough, chest congestion, head congestion and mild wheezing on and off, fortunately the patient is active smoker and smokes 1 pack per day. Denies fever, chills, nausea, vomiting, changes in his bowel movements or urine. Hospital Course Hospital Course: 57 y.o. M presented to [facility] with chest pain. The patient has a PMH of coronary arterial disease, several ID's, 2 stents placed In 2010 and 2014, CABG 2009 with 2 bypasses, AAA. The patient endorses intermittent episodes of chest pain for the last 3-4 months. Recent stress test (approx. 1 yr ago) was normal. Abdominal US (unknown date) showed a stable AAA. While at [facility], serial cardiac enzymes were < 0.012, CXR benign and his EKG demonstrated NSR, no evidence of infarct or ischemia. Cardiolite stress test was normal, per Dr. Dao. These results were presented to the patient and I proposed conducting further imaging of his chest and abdomen to evaluate for possible pathology. The patient declined and stated that he wanted to go home. The patient was cautioned against leaving the hospital and informed that we would like to obtain his records from the OR, the patient (again) stated that he wanted to leave. Since the patient was alert/oriented and able to make his own medical decisions, he was within his rights to leave [facility] prior to completing the workup for his chest pain. The patient endorsed smoking approximately 1 pack of cigarettes per day. He received extensive counseling about smoking cessation, he stated understanding. He was also provided records of his test results from [facility]. The patient was strongly encouraged to follow up with his glass forming crew member. The patient stated full understanding of his discharge instructions. For further information regarding this patient's hospitalization, please refer to the EMR. Physical Exam Vital Signs: Temp Pulse Resp BP Pulse Ox 98.2 F 54 L 16 128/78 H 97 11/16/17 16:25 11/16/17 16:25 11/16/17 16:25 11/16/17 07:47 11/16/17 16:25 Results Laboratory Results: 11/16/17 05:35 11/16/17 05:35 11/16/17 11/16/17 05:35 11:19 Troponin I < 0.012 < 0.012 Impressions: Chest X-Ray 11/15/17 17:26 IMPRESSION: NO SIGNIFICANT RADIOGRAPHIC FINDING IN THE CHEST. PRIOR CABG. Status: Imported from PACS Qualifiers - * PATIENT BEING DISCHARGED WITH ANY OF THE FOLLOWING DIAGNOSIS: No Plan Discharge Plan: DISCHARGE HOME. FOLLOW UP WITH INSTRUMENT REPAIR SPECIALIST. Time Spent: Less than 30 Minutes
== END 2017-11-16 16:41 | disposition home or self-care (01) ==
LOC: ER 16:05 → EH 23:35 → 4S 11-16 02:10
PROVIDERS: ADMIT Internal Medicine; ATTEND Internal Medicine
DX: R07.89 Other chest pain (principal); E11.9 Type 2 diabetes mellitus without complications; I10 Essential (primary) hypertension; F17.210 Nicotine dependence, cigarettes, uncomplicated; R63.4 Abnormal weight loss; I25.10 Atherosclerotic heart disease of native coronary artery without angina pectoris; G89.29 Other chronic pain; M54.9 Dorsalgia, unspecified; M25.559 Pain in unspecified hip; M54.2 Cervicalgia; R05 Cough; R09.89 Other specified symptoms and signs involving the circulatory and respiratory systems; R06.2 Wheezing; R06.02 Shortness of breath; R61 Generalized hyperhidrosis; R10.9 Unspecified abdominal pain; R11.0 Nausea; K21.9 Gastro-esophageal reflux disease without esophagitis; I25.2 Old myocardial infarction; Z68.20 Body mass index [BMI] 20.0-20.9, adult; Z95.1 Presence of aortocoronary bypass graft; Z95.5 Presence of coronary angioplasty implant and graft; Z53.21 Procedure and treatment not carried out due to patient leaving prior to being seen by health care provider; Z98.1 Arthrodesis status; Z98.890 Other specified postprocedural states; Z82.49 Family history of ischemic heart disease and other diseases of the circulatory system; Z79.82 Long term (current) use of aspirin; Z79.899 Other long term (current) drug therapy; Z87.19 Personal history of other diseases of the digestive system
CPT/HCPCS: 93005; 99285; 36415 ×2; 82553; 82962; 82550; 83735; 85025; 85027; 80048; 80053; 84484 ×2; 83036; 93017; 71045; 78452; 93010; G0378 ×3; A9500; J2785; J1650; Q9969

== ENCOUNTER → 2017-12-11 | Outpatient (CLI) | payer OTHER ==
--- NOTE | 2017-12-11 15:18 | RADIOLOGY REPORT (SQ) ---
EXAM DESCRIPTION: CHEST PA/LATERAL COMPLETED DATE/TIME: 12/11/2017 2:16 pm REASON FOR STUDY: PRE-OP COMPARISON: 11/15/2017. TECHNIQUE: Frontal and lateral radiographic views of the chest acquired. NUMBER OF VIEWS: Two view. LIMITATIONS: None. FINDINGS: LUNGS AND PLEURA: No opacities, masses or pneumothorax. No pleural effusion. MEDIASTINUM AND HILAR STRUCTURES: Stable contours. Intact sternal wires. HEART AND VASCULAR STRUCTURES: Heart normal size. No evidence for failure. BONES: No acute findings. HARDWARE: None in the chest. OTHER: No other significant finding. IMPRESSION: NO SIGNIFICANT RADIOGRAPHIC FINDING IN THE CHEST. TECHNICAL DOCUMENTATION: JOB ID: [id number] [employer]- All Rights Reserved Reading location - IP/workstation name: [email or web address]
[2017-12-11 15:25] LABS: ALANINE AMINOTRANSFERASE 26 U/L (21-72); ALBUMIN 4.5 g/dL (3.5-5.0); ALKALINE PHOSPHATASE 82 U/L (38-126); ANION GAP 14 (5-19); ASPARTATE AMINO TRANSFERASE 25 U/L (17-59); BILIRUBIN,DIRECT 0.2 mg/dL (0.0-0.4); BILIRUBIN,TOTAL 0.4 mg/dL (0.2-1.3); BLOOD UREA NITROGEN 10 mg/dL (7-20); CALCIUM 9.4 mg/dL (8.4-10.2); CARBON DIOXIDE 28 mmol/L (22-30); CHLORIDE 101 mmol/L (98-107); GLUCOSE 92 mg/dL (75-110); POTASSIUM 3.4 mmol/L (3.6-5.0); SODIUM 142.7 mmol/L (137-145); TOTAL PROTEIN 7.1 g/dL (6.3-8.2)
[2017-12-11 16:03] LABS: ABSOLUTE BASOPHILS # (AUTO) 0.1 10^3/uL (0.0-0.2); ABSOLUTE EOSINOPHILS # (AUTO) 0.1 10^3/uL (0.0-0.6); ABSOLUTE LYMPHOCYTES (AUTO) 2.2 10^3/uL (0.5-4.7); ABSOLUTE MONOCYTES (AUTO) 0.5 10^3/uL (0.1-1.4); ABSOLUTE NEUT (AUTO) 5.3 10^3/uL (1.7-8.2); BASOPHILS % (AUTO) 0.9 % (0-2); EOSINOPHILS % (AUTO) 1.1 % (0-6); HEMATOCRIT 40.3 % (37.9-51.0); HEMOGLOBIN 13.9 g/dL (13.5-17.0); LYMPHOCYTES % (AUTO) 27.1 % (13-45); MEAN CORPUSCULAR HEMOGLOBIN 29.9 pg (27.0-33.4); MEAN CORPUSCULAR HGB CONC 34.6 g/dL (32.0-36.0); MEAN CORPUSCULAR VOLUME 87 fl (80-97); MONOCYTES % (AUTO) 6.4 % (3-13); PLATELET COUNT 241 10^3/uL (150-450); RED BLOOD COUNT 4.65 10^6/uL (4.35-5.55); RED CELL DISTRIBUTION WIDTH 15.5 % (11.5-14.0); SEGMENTED NEUTROPHILS % (AUTO) 64.5 % (42-78); TOTAL CELLS COUNTED % (AUTO) 100 %; WHITE BLOOD COUNT 8.2 10^3/uL (4.0-10.5)
--- NOTE | 2017-12-11 22:16 | EKG REPORT ---
SEVERITY:- OTHERWISE NORMAL ECG - SINUS RHYTHM BORDERLINE RIGHT AXIS DEVIATION : Confirmed by: Annia Dao 11-Dec-2017 22:15:53
== END ==
LOC: OD 13:44
PROVIDERS: ATTEND Surgery
DX: Z01.811 Encounter for preprocedural respiratory examination (principal); Z01.812 Encounter for preprocedural laboratory examination; E11.9 Type 2 diabetes mellitus without complications; Z87.891 Personal history of nicotine dependence
CPT/HCPCS: 36415; 71046; 80053; 85025; 93005; 93010

== ENCOUNTER → 2018-08-29 | Outpatient (CLI) | payer OTHER ==
[~2018-08-29] MED LIST changes: +AMINOPHYLLINE INJ/PF 250 MG/10 ML SDV IV ONE
--- NOTE | 2018-08-29 12:57 | DRAGON STRESS TEST REPORT ---
INTRAVENOUS LEXISCAN CARDIOLITE STRESS TEST USING SINGLE PHOTON EMMISION COMPUTERIZED TOMOGRAPHIC. DATE OF PROCEDURE: August 29, 2018, INDICATION : Coronary artery disease CARDIAC RISK FACTORS: Known CAD with prior CABG and also stents. Hypertension, dyslipidemia, tobacco abuse RESTING EKG: Sinus rhythm, no acute ST-T wave changes STRESS EKG: No significant ST segment changes noted with LexiScan bolus REASON FOR TERMINATION: Protocol. PROCEDURE REPORT: Baseline heart rate 67 beats per minute with blood pressure of 119/70. Patient had no significant complaints. Patient was bolused with Lexiscan 0.4 mg intravenously followed by saline bolus. Heart rate at 2 minutes post bolus 77 with a blood pressure of 112/66. 3 minutes post bolus heart rate 69 with blood pressure of 120/69. No significant EKG changes were noted. Patient had no significant complaints during the procedure or postprocedure. CONCLUSIONS: Normal EKG and hemodynamic response to IV LexiScan. NUCLEAR DATA: At rest the patient was given 10.86 millicuries of technetium 99 sestamibi injected intravenously. As per protocol rest gated SPECT images were obtained. On day of stress test, the patient was given intravenous LexiScan at a dose of 0.4 mg in 5 mL intravenously, followed by flush with normal saline. Subsequently the stress dose of 31.2 millicuries of technetium 99 sestamibi was injected intravenously. As per protocol stress gated images were obtained. NUCLEAR INTERPRETATION: Both raw and processed data were used for interpretation. Visual, qualitative, computer-generated quantitative data was used. There was good myocardial uptake of technetium compound. Motion artifact and soft tissue attenuations were noted. Increased visceral uptake was noted. Small area of distal inferior wall transient perfusion defect or ischemia noted. SDS is 1 therefore relatively low risk., No definitive areas of fixed perfusion defect or scars noted. EKG gated imaging showed LV EF at 55 %, rest and stress gated EF similar visually. T. I D. ratio was 1.16. Lung heart ratio noted to be within normal limits 0.25. No significant extracardiac and abnormal radiotracer activities were noted. RV free wall uptake was noted to be increased consistent with RV enlargement and hypertrophy. IMPRESSION: Also refer to comments under nuclear interpretation. Also test results needs to be interpreted in the context of pretest probability. 1. Small area of distal inferior wall transient perfusion defect or ischemia noted. SDS is 1 therefore relatively low risk. 2. There is no definitive scintigraphic evidence of myocardial infarction/scar. 3. EKG gated imaging shows left ventricular ejection fraction of approx. 55 %. 4. Clinical correlation requested as worse disease and or balanced ischemia could be missed. In approximately 10% of the cases Lexiscan may not cause adequate vasodilatory stress. RECOMMENDATIONS: Aggressive risk factor modification and medical management. Further evaluation may be needed if continued symptoms or other high risk indicators are noted on clinical evaluation. May consider stress echo for functional assessment. If significant symptoms may consider heart catheterization otherwise medical management since overall area of ischemia is small and severity mild. Close cardiology follow-up is also recommended. Clinical correlation with echocardiogram derived ejection fraction. Inability to exercise by itself can lead to increased cardiovascular event risks. Consider cardiology consultation and or follow-up if clinically indicated. I am available for cardiology evaluation and consultation if requested by the butcher supervisor, unless patient already has a environmental health physician. Dr. Ryann Dao. MRCP Board certified in cardiology and sleep medicine. Board certified in nuclear cardiology, adult echocardiography. [facility]
== END ==
LOC: RAD 07:10
PROVIDERS: ATTEND Internal Medicine Cardiovascular Disease
DX: I25.119 Atherosclerotic heart disease of native coronary artery with unspecified angina pectoris (principal)
CPT/HCPCS: 93017; 78452; A9500; J2785; J0280; Q9969

== ENCOUNTER 2018-12-28 02:28 | Emergency (ER) | payer OTHER ==
[2018-12-28 04:49] LABS: ABSOLUTE BASOPHILS # (AUTO) 0.1 10^3/uL (0.0-0.2); ABSOLUTE EOSINOPHILS # (AUTO) 0.1 10^3/uL (0.0-0.6); ABSOLUTE LYMPHOCYTES (AUTO) 2.1 10^3/uL (0.5-4.7); ABSOLUTE MONOCYTES (AUTO) 0.7 10^3/uL (0.1-1.4); ABSOLUTE NEUT (AUTO) 10.6 10^3/uL (1.7-8.2); BASOPHILS % (AUTO) 0.7 % (0-2); EOSINOPHILS % (AUTO) 0.5 % (0-6); HEMATOCRIT 42.7 % (37.9-51.0); HEMOGLOBIN 14.5 g/dL (13.5-17.0); LYMPHOCYTES % (AUTO) 15.7 % (13-45); MEAN CORPUSCULAR HEMOGLOBIN 30.7 pg (27.0-33.4); MEAN CORPUSCULAR HGB CONC 33.8 g/dL (32.0-36.0); MEAN CORPUSCULAR VOLUME 91 fl (80-97); MONOCYTES % (AUTO) 5.3 % (3-13); PLATELET COUNT 233 10^3/uL (150-450); RED BLOOD COUNT 4.71 10^6/uL (4.35-5.55); RED CELL DISTRIBUTION WIDTH 14.3 % (11.5-14.0); SEGMENTED NEUTROPHILS % (AUTO) 77.8 % (42-78); TOTAL CELLS COUNTED % (AUTO) 100 %; WHITE BLOOD COUNT 13.6 10^3/uL (4.0-10.5)
[2018-12-28 05:01] LABS: ALBUMIN 4.8 g/dL (3.5-5.0); ALKALINE PHOSPHATASE 96 U/L (38-126); ANION GAP 11 (5-19); ASPARTATE AMINO TRANSFERASE 24 U/L (17-59); BILIRUBIN,DIRECT 0.4 mg/dL (0.0-0.4); BILIRUBIN,TOTAL 0.7 mg/dL (0.2-1.3); BLOOD UREA NITROGEN 16 mg/dL (7-20); CALCIUM 9.7 mg/dL (8.4-10.2); CARBON DIOXIDE 29 mmol/L (22-30); CHLORIDE 99 mmol/L (98-107); CREATINE KINASE 174 U/L (55-170); GLUCOSE 94 mg/dL (75-110); POTASSIUM 3.3 mmol/L (3.6-5.0); TOTAL PROTEIN 7.9 g/dL (6.3-8.2)
[2018-12-28 05:13] LABS: CREATINE KINASE MB 2.44 ng/mL (<4.55)
[2018-12-28 05:17] LABS: TROPONIN I < 0.012 ng/mL
[2018-12-28] MEDS ORDERED: LIDOCAINE 2% VISCOUS SOLN 20 ML UDCUP PO ONE (06:08)
[2018-12-28] MEDS ORDERED: METOCLOPRAMIDE HCL ORAL SOLN 10 MG/10 ML UDCUP PO ONE (06:08)
[2018-12-28] MEDS ORDERED: MAG HYDROX/AL HYDROX/SIMETH SUSP 30 ML UDCUP PO ONE (06:08)
--- NOTE | 2018-12-28 06:14 | ER Document Report ---
ED Cardiac - General Chief Complaint: Chest Pain Stated Complaint: CHEST PAIN Primary Care Provider: TEODORA BROCK MD [Primary Care Provider] - Follow up as needed Notes: 58 year old male with h/o htn, cad, hld, dm presents with 2 weeks of epigastric pain lower sternal pain constant for 2 weeks. Sharp and burning. He tells me a cath in last several months that showed some disease but not intervention needed. No fever or chills no sob or associated symptoms. Current everyday smoker. TRAVEL OUTSIDE OF THE [place] 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 2 bypasses, Hx Hypercholesterolemia, Hx Hypertension Pulmonary Medical History: Reports: Hx COPD Denies: Hx Tuberculosis Neurological Medical History: Reports: Hx Migraine Endocrine Medical History: Reports: Hx Diabetes Mellitus Type 2 Renal/ Medical History: Denies: Hx Peritoneal Dialysis GI Medical History: Reports: Hx Diverticulitis, Hx Gastritis, Hx Gastr oesophageal Reflux Disease, Hx Hiatal Hernia, Hx Irritable Bowel, Hx Colonoscopy, Hx Endoscopy Musculoskeletal Medical History: Reports Hx Arthritis, Reports Hx Fibromyalgia, Reports Hx Musculoskeletal Deformity, Reports Hx Musculoskeletal Trauma Psychiatric Medical History: Reports: Hx Anxiety, Hx Depression Traumatic Medical History: Reports: Hx Fractures Past Surgical History: Reports: Hx Cardiac Catheterization - stent placed, Hx Cardiac Surgery - double bypass 2008, Hx Coronary Artery Bypass Graft - 2, Hx Coronary Stent - 2, Hx Inguinal Hernia - Right, Hx Orthopedic Surgery - fusion of c5-c6, right knee surgery 3 left knee surgery 1 Carpal Tunl.x2 - Immunizations Hx Diphtheria, Pertussis, Tetanus Vaccination: Yes Hx Pneumococcal Vaccination: 01/19/13 Review of Systems - Review of Systems Constitutional: No symptoms reported EENT: No symptoms reported Cardiovascular: See HPI, Chest pain Respiratory: No symptoms reported Gastrointestinal: Abdominal pain Genitourinary: No symptoms reported Male Genitourinary: No symptoms reported Musculoskeletal: No symptoms reported Skin: No symptoms reported Hematologic/Lymphatic: No symptoms reported Neurological/Psychological: No symptoms reported Physical Exam - Vital signs Vitals: Temp Pulse Resp BP Pulse Ox 97.8 F 78 16 144/79 H 94 12/28/18 02:32 12/28/18 02:32 12/28/18 02:32 12/28/18 02:32 12/28/18 02:32 Interpretation: Hypertensive - General General appearance: Appears well, Alert. No: Anxious In distress: None - HEENT Head: Normocephalic, Atraumatic Eyes: Normal Pupils: PERRL Ears: Normal Mouth/Lips: Normal Neck: Normal - Respiratory Respiratory status: No respiratory distress Chest status: Tender Breath sounds: Normal Chest palpation: Normal - Cardiovascular Rhythm: Regular Heart sounds: Normal auscultation Murmur: No - Abdominal Inspection: Normal Distension: No distension Bowel sounds: Normal Tenderness: Tender - epigastric mild - Extremities General upper extremity: Normal inspection General lower extremity: Normal inspection - Neurological Neuro grossly intact: Yes Cognition: Normal Orientation: AAOx4 - Skin Skin Temperature: Warm Skin Moisture: Dry Skin Color: Normal Skin Turgor: Elastic Course - Re-evaluation Re-evalutation: 12/28/18 06:45 MDM 58 year old male here with mother. He has had 2 weeks of constant nonexertional epigastric and lower chest pain. It is better here after treatment with GI cocktail. While he is high risk - cad, distant cabg, current smoker - his workup here is unrevealing and he feels better after gi cocktail. He will follow up with his pcp. We discussed return here precautions. - Vital Signs Vital signs: Temp Pulse Resp BP Pulse Ox 97.8 F 78 19 163/98 H 97 12/28/18 02:32 12/28/18 02:32 12/28/18 06:01 12/28/18 06:18 12/28/18 06:01 - Laboratory Result Diagrams: 12/28/18 04:25 12/28/18 04:25 Laboratory results interpreted by me: 12/28/18 12/28/18 04:25 04:25 WBC 13.6 H RDW 14.3 H Absolute Neuts (auto) 10.6 H Potassium 3.3 L Creatine Kinase 174 H - Diagnostic Test Radiology reviewed: Pending, Image reviewed Radiology results interpreted by me: 12/28/18 06:24 Nothing acute cardiomegally per my read. - EKG Interpretation by Me EKG shows normal: Sinus rhythm, Cascade - NSR Nl Cascade No st elevation or depression Nl qrs. My interpretation Discharge - Discharge Clinical Impression: Chest wall discomfort, Dyspepsia Condition: Good Disposition: HOME, SELF-CARE Instructions: Chest Wall Pain ([facility]), Reflux Disease (GERD) ([facility]) Additional Instructions: See your doctor in follow up. Take your medicines as directed. Please return here for any problems or any concerns. Prescriptions: Sucralfate [Carafate] 1 gm PO QID 10 Days #300 oral.susp Referrals: TEODORA BROCK MD [Primary Care Provider] - Follow up as needed
--- NOTE | 2018-12-28 06:48 | RADIOLOGY REPORT (SQ) ---
EXAM DESCRIPTION: XR CHEST 1 VIEW COMPLETED DATE/TME: 12/28/2018 06:07 CLINICAL HISTORY: htn/ chest pain COMPARISON: 12/11/2017 FINDINGS: Single frontal view of the chest. Cardiomediastinal silhouette: Atherosclerotic calcification aortic arch. Heart is upper limits of normal. Prior median sternotomy. Leads overlie the chest. Lungs: No consolidation, pneumothorax, or pleural effusion. Bones: No acute osseous abnormality. Upper abdomen: No abnormality identified. IMPRESSION: 1. No acute pulmonary process identified.
[2018-12-28 07:59] VITALS: BP 149/90
--- NOTE | 2018-12-29 18:41 | EKG REPORT ---
SEVERITY:- ABNORMAL ECG - SINUS RHYTHM NONSPECIFIC INTRAVENTRICULAR CONDUCTION DELAY INFERIOR INFARCT, AGE INDETERMINATE LATERAL INFARCT, OLD : Confirmed by: Annia Dao 29-Dec-2018 18:41:15
== END 2018-12-28 08:07 | disposition home or self-care (01) ==
LOC: ER 02:28
DX: R10.13 Epigastric pain (principal); R10.816 Epigastric abdominal tenderness; R07.89 Other chest pain; J44.9 Chronic obstructive pulmonary disease, unspecified; F17.200 Nicotine dependence, unspecified, uncomplicated; I25.10 Atherosclerotic heart disease of native coronary artery without angina pectoris; I10 Essential (primary) hypertension; I25.2 Old myocardial infarction; E11.9 Type 2 diabetes mellitus without complications; Z88.8 Allergy status to other drugs, medicaments and biological substances; Z95.5 Presence of coronary angioplasty implant and graft; Z95.1 Presence of aortocoronary bypass graft
CPT/HCPCS: 93005; 94640; 99284; 36415; 82553; 82550; 85025; 80053; 84484; 71045; 93010; J3490

== ENCOUNTER 2019-04-20 16:20 | Emergency (ER) | payer OTHER ==
--- NOTE | 2019-04-20 16:56 | ER Document Report ---
ED Medical Screen (RME) - General Chief Complaint: Chest Pain Stated Complaint: CHEST PAIN Primary Care Provider: TEODORA BROCK MD [Primary Care Provider] - Follow up as needed TRAVEL OUTSIDE OF THE [place] IN LAST 30 DAYS: No - HPI Notes: 04/20/19 16:49 58-year-old male with a history of 5 MIs, 2 stents, COPD and hypertension presents to the emergency room for complaints of left sided chest with radiation down left arm today around 12pm. Pt states he has had intermittent chest pain x 2 weeks. Patient states he did take nitro today which did help with his blood pressure, did not help much with his chest pain. Reports left-sided chest pain, radiates down his arm, worse on exertion with dyspnea. patient is supposed to get a stress test on May 01 in [place], however he states he "cannot wa it that long". Change Control Analyst is Dr. Brock in [place] patient is anticoagulated on Plavix and also did take baby aspirin today as well. Patient states his blood pressure today was 190/95, which made him concerned. I have greeted and performed a rapid initial assessment of this patient. A comprehensive ED assessment and evaluation of the patient, analysis of test results and completion of the medical decision making process will be conducted by additional ED providers. PHYSICAL EXAMINATION: GENERAL: chronically ill malnourished and in no mild distress HEAD: Atraumatic, normocephalic. NECK: Normal range of motion CV: s1, s2 regular LUNGS: No respiratory distress, tachypneic NEUROLOGICAL: Normal speech, normal gait. SKIN: Warm, Dry, normal turgor, no rashes or lesions noted. 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 and CABG 2 bypasses, Hx Hypercholesterolemia, Hx Hypertension Pulmonary Medical History: Reports: Hx COPD Denies: Hx Tuberculosis Neurological Medical History: Reports: Hx Migraine Endocrine Medical History: Reports: Hx Diabetes Mellitus Type 2 Renal/ Medical History: Denies: Hx Peritoneal Dialysis GI Medical History: Reports: Hx Diverticulitis, Hx Gastritis, Hx Gastroesophageal Reflux Disease, Hx Hiatal Hernia, Hx Irritable Bowel, Hx Colonoscopy, Hx Endoscopy Musculoskeltal Medical History: Reports Hx Arthritis, Reports Hx Fibromyalgia, Reports Hx Musculoskeletal Deformity, Reports Hx Musculoskeletal Trauma Psychiatric Medical History: Reports: Hx Anxiety, Hx Depression Traumatic Medical History: Reports: Hx Fractures Past Surgical History: Reports: Hx Cardiac Catheterization - stent placed, Hx Cardiac Surgery - double bypass 2008, Hx Coronary Artery Bypass Graft - 2, Hx Coronary Stent - 2, Hx Inguinal Hernia - Right, Hx Orthopedic Surgery - fusion of c5-c6, right knee surgery 3 left knee surgery 1 Carpal Tunl.x2 - Immunizations Hx Diphtheria, Pertussis, Tetanus Vaccination: Yes Physical Exam - Vital signs Vitals: Pulse Resp BP Pulse Ox 76 18 154/95 H 99 04/20/19 16:37 04/20/19 16:37 04/20/19 16:37 04/20/19 16:37 Course - Vital Signs Vital signs: Temp Pulse Resp BP Pulse Ox 76 18 154/95 H 99 04/20/19 16:37 04/20/19 16:37 04/20/19 16:37 04/20/19 16:37 Doctor's Discharge - Discharge Referrals: TEODORA BROCK MD [Primary Care Provider] - Follow up as needed
--- NOTE | 2019-04-20 17:28 | RADIOLOGY REPORT (SQ) ---
EXAM DESCRIPTION: CHEST SINGLE VIEW COMPLETED DATE/TIME: 04/20/2019 5:14 pm REASON FOR STUDY: CP COMPARISON: Chest radiographs 12/28/2018 EXAM PARAMETERS: NUMBER OF VIEWS: One view. TECHNIQUE: Single frontal radiographic view of the chest acquired. RADIATION DOSE: NA LIMITATIONS: None. FINDINGS: LUNGS AND PLEURA: No opacities, masses or pneumothorax. No pleural effusion. MEDIASTINUM AND HILAR STRUCTURES: Unchanged contours. HEART AND VASCULAR STRUCTURES: Heart normal in size. Normal vasculature. BONES: Intact median sternotomy wires. HARDWARE: None in the chest. OTHER: No other significant finding. IMPRESSION: No acute pulmonary findings. TECHNICAL DOCUMENTATION: JOB ID: [id number] [employer]- All Rights Reserved Reading location - IP/workstation name: [email or web address]
[2019-04-20 17:38] LABS: ABSOLUTE BASOPHILS # (AUTO) 0.1 10^3/uL (0.0-0.2); ABSOLUTE LYMPHOCYTES (AUTO) 1.4 10^3/uL (0.5-4.7); ABSOLUTE MONOCYTES (AUTO) 0.3 10^3/uL (0.1-1.4); ABSOLUTE NEUT (AUTO) 5.1 10^3/uL (1.7-8.2); BASOPHILS % (AUTO) 0.9 % (0-2); EOSINOPHILS % (AUTO) 0.6 % (0-6); HEMATOCRIT 42.9 % (37.9-51.0); HEMOGLOBIN 14.7 g/dL (13.5-17.0); LYMPHOCYTES % (AUTO) 20.7 % (13-45); MEAN CORPUSCULAR HEMOGLOBIN 29.9 pg (27.0-33.4); MEAN CORPUSCULAR HGB CONC 34.3 g/dL (32.0-36.0); MEAN CORPUSCULAR VOLUME 87 fl (80-97); MONOCYTES % (AUTO) 4.6 % (3-13); PLATELET COUNT 203 10^3/uL (150-450); RED BLOOD COUNT 4.91 10^6/uL (4.35-5.55); RED CELL DISTRIBUTION WIDTH 14.9 % (11.5-14.0); SEGMENTED NEUTROPHILS % (AUTO) 73.2 % (42-78); TOTAL CELLS COUNTED % (AUTO) 100 %
[2019-04-20 17:41] LABS: INTERNATIONAL RATION (INR) 1.09; PROTHROMBIN TIME 14.1 SEC (11.4-15.4)
[2019-04-20 17:56] LABS: ALBUMIN 4.6 g/dL (3.5-5.0); ALKALINE PHOSPHATASE 88 U/L (38-126); ANION GAP 12 (5-19); ASPARTATE AMINO TRANSFERASE 27 U/L (17-59); BILIRUBIN,DIRECT 0.2 mg/dL (0.0-0.4); BILIRUBIN,TOTAL 0.6 mg/dL (0.2-1.3); BLOOD UREA NITROGEN 14 mg/dL (7-20); CALCIUM 9.5 mg/dL (8.4-10.2); CARBON DIOXIDE 29 mmol/L (22-30); CHLORIDE 101 mmol/L (98-107); CREATINE KINASE 235 U/L (55-170); GLUCOSE 110 mg/dL (75-110); POTASSIUM 3.7 mmol/L (3.6-5.0); TOTAL PROTEIN 7.7 g/dL (6.3-8.2)
[2019-04-20 18:04] LABS: CREATINE KINASE MB 4.13 ng/mL (<4.55)
[2019-04-20 18:06] LABS: TROPONIN I < 0.012 ng/mL
[2019-04-20] MEDS ORDERED: HYDRALAZINE HCL INJ/PF 20 MG/1 ML SDV IV ONE (18:54)
--- NOTE | 2019-04-20 18:59 | ER Document Report ---
ED General - General Chief Complaint: Chest Pain Stated Complaint: CHEST PAIN Time Seen by Provider: 04/20/19 18:20 Primary Care Provider: TEODORA MURPHY MD [Primary Care Provider] - Follow up as needed TRAVEL OUTSIDE OF THE [place] IN LAST 30 DAYS: No - HPI Notes: Patient history of multiple heart attacks and stents Zentz with continued chest pain. He states he has been having chest pain for last several months has worsened over the last couple of weeks. He saw his emergency response technician Dr. Murphy last week in [place] and is scheduled to have a catheterization May 01. He states that the pain is hard to deal with so he comes emergency department for evaluation. No recent cough congestion he is a daily smoker. He is on Plavix he states he is been medically compliant with all of his blood pressure medications as well. 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 and CABG 2 bypasses, Hx Hypercholesterolemia, Hx Hypertension Pulmonary Medical History: Reports: Hx COPD Denies: Hx Tuberculosis Neurological Medical History: Reports: Hx Migraine Endocrine Medical History: Reports: Hx Diabetes Mellitus Type 2 Renal/ Medical History: Denies: Hx Peritoneal Dialysis GI Medical History: Reports: Hx Diverticulitis, Hx Gastritis, Hx Gastroesophageal Reflux Disease, Hx Hiatal Hernia, Hx Irritable Bowel, Hx Colonoscopy, Hx Endoscopy Musculoskeletal Medical History: Reports Hx Arthritis, Reports Hx Fibromyalgia, Reports Hx Musculoskeletal Deformity, Reports Hx Musculoskeletal Trauma Psychiatric Medical History: Reports: Hx Anxiety, Hx Depression Traumatic Medical History: Reports: Hx Fractures Past Surgical History: Reports: Hx Cardiac Catheterization - stent placed, Hx Cardiac Surgery - double bypass 2008, Hx Coronary Artery Bypass Graft - 2, Hx Coronary Stent - 2, Hx Inguinal Hernia - Right, Hx Orthopedic Surgery - fusion of c5-c6, right knee surgery 3 left knee surgery 1 Carpal Tunl.x2 - Immunizations Hx Diphtheria, Pertussis, Tetanus Vaccination: Yes Hx Pneumococcal Vaccination: 01/19/13 Review of Systems - Review of Systems Constitutional: No symptoms reported EENT: No symptoms reported Cardiovascular: See HPI Respiratory: No symptoms reported Gastrointestinal: No symptoms reported Genitourinary: No symptoms reported Male Genitourinary: No symptoms reported Musculoskeletal: No symptoms reported Skin: No symptoms reported Hematologic/Lymphatic: No symptoms reported Neurological/Psychological: No symptoms reported Physical Exam - Vital signs Vitals: Pulse Resp BP Pulse Ox 76 18 154/95 H 99 04/20/19 16:37 04/20/19 16:37 04/20/19 16:37 04/20/19 16:37 - General General appearance: Appears well, Alert - HEENT Head: Normocephalic, Atraumatic Eyes: Normal Conjunctiva: Normal Cornea: Normal Pupils: PERRL - Respiratory Respiratory status: No respiratory distress Chest status: Nontender Breath sounds: Normal Chest palpation: Normal - Cardiovascular Rhythm: Regular Heart sounds: Normal auscultation Murmur: No - Abdominal Inspection: Normal Distension: No distension Bowel sounds: Normal Tenderness: Nontender - Back Back: Normal - Extremities General upper extremity: Normal inspection, Normal strength General lower extremity: Normal inspection, Normal strength - Neurological Neuro grossly intact: Yes Cognition: Normal Orientation: AAOx4 - Psychological Associated symptoms: Normal affect Course - Re-evaluation Re-evalutation: 04/20/19 18:59 Patient work-up negative. EKG shows no concerning findings and no significant changes from previous. Troponin within normal limits. Attempting to get in touch with the patient's emergency response technician Dr. Garcia for further consultation. 04/20/19 19:[address] Brownlee at [facility]. Patient will be boarded at this emergency department as there are no rooms available. Every 6 troponin every 6 EKG nitro base provided in this emergency department. As soon as catheterization lab is available patient will be transported for catheterization as he was already scheduled on May 01 to have one. Admitting provider will be Dr. Garcias - Vital Signs Vital signs: Temp Pulse Resp BP Pulse Ox 76 17 174/101 H 96 04/20/19 16:37 04/20/19 19:01 04/20/19 19:00 04/20/19 19:01 - Laboratory Result Diagrams: 04/20/19 17:00 04/20/19 17:00 Laboratory results interpreted by me: 04/20/19 04/20/19 17:00 17:00 RDW 14.9 H Creatine Kinase 235 H - EKG Interpretation by Me Additional EKG results interpreted by me: 04/20/19 19:00 Time 1627 Rate of 84, normal sinus rhythm, normal axis and intervals, no significant changes from 12/28/2018, no concerning ST depressions or elevations 04/20/19 20:32 Time 1959 Rate of 72, normal sinus rhythm, normal axis and intervals, no concerning ST depressions or elevations Discharge - Discharge Clinical Impression: Chest pain Qualifiers: Chest pain type: unspecified Qualified Code(s): R07.9 - Chest pain, unspecified Condition: Fair Disposition: [facility] Referrals: TEODORA MURPHY MD [Primary Care Provider] - Follow up as needed
--- NOTE | 2019-04-20 19:29 | EKG REPORT ---
SEVERITY:- DEFECTIVE ECG - BORDERLINE RIGHT AXIS DEVIATION MINIMAL ST DEPRESSION, INFERIOR LEADS BASELINE ARTIFACT.REPEAT EKG : Confirmed by: Dinora Sutherland MD 20-Apr-2019 19:28:13
[2019-04-20] MEDS ORDERED: ENOXAPARIN SODIUM INJ 80 MG/0.8 ML DISP.SYRIN SUBCUT SCH (19:30)
[2019-04-20] MEDS ORDERED: NITROGLYCERIN 2% OINTMENT 1 GM PACKET TP ONE (19:39)
[2019-04-20] MEDS ORDERED: ASPIRIN 81 MG TABLET, CHEWABLE PO ONE (20:40)
[2019-04-20] MEDS: ENOXAPARIN SODIUM INJ 80 MG/0.8 ML DISP.SYRIN SUBCUT SCH (21:03)
[2019-04-21] MEDS ORDERED: MORPHINE SULFATE 10 MG/ML INJ IV ONE ×2 (02:15→09:46)
--- NOTE | 2019-04-21 07:55 | EKG REPORT ---
SEVERITY:- ABNORMAL ECG - SINUS RHYTHM INCOMPLETE RIGHT BUNDLE BRANCH BLOCK PROBABLE INFERIOR INFARCT, AGE INDETERMINATE : Confirmed by: Mario Rai MD 21-Apr-2019 07:54:38
--- NOTE | 2019-04-21 07:56 | EKG REPORT ---
SEVERITY:- BORDERLINE ECG - SINUS RHYTHM BORDERLINE INFERIOR Q WAVES BORDERLINE T ABNORMALITIES, INFERIOR LEADS : Confirmed by: Mario Rai MD 21-Apr-2019 07:55:30
[2019-04-21 10:14] LABS: HEMATOCRIT 41.1 % (37.9-51.0); HEMOGLOBIN 14.1 g/dL (13.5-17.0); MEAN CORPUSCULAR HEMOGLOBIN 29.9 pg (27.0-33.4); MEAN CORPUSCULAR HGB CONC 34.4 g/dL (32.0-36.0); MEAN CORPUSCULAR VOLUME 87 fl (80-97); PLATELET COUNT 199 10^3/uL (150-450); RED BLOOD COUNT 4.73 10^6/uL (4.35-5.55); RED CELL DISTRIBUTION WIDTH 14.6 % (11.5-14.0); WHITE BLOOD COUNT 9.1 10^3/uL (4.0-10.5)
[2019-04-21] MEDS: ENOXAPARIN SODIUM INJ 80 MG/0.8 ML DISP.SYRIN SUBCUT SCH (11:09)
[2019-04-21 11:28] LABS: APPEARANCE,URINE CLEAR; BILIRUBIN,URINE NEGATIVE (NEGATIVE); COLOR,URINE YELLOW; GLUCOSE, URINE NEGATIVE (NEGATIVE); KETONES,URINE 20 mg/dL (NEGATIVE); LEUKOCYTE ESTERASE,URINE NEGATIVE (NEGATIVE); NITRITE,URINE NEGATIVE (NEGATIVE); PROTEIN,URINE NEGATIVE (NEGATIVE); URINE SPECIFIC GRAVITY 1.016; UROBILINOGEN,URINE NEGATIVE mg/dL (<2.0)
[2019-04-21 12:34] VITALS: BP 166/91
--- NOTE | 2019-04-21 13:19 | EKG REPORT ---
SEVERITY:- OTHERWISE NORMAL ECG - SINUS RHYTHM LEFT AXIS DEVIATION : Confirmed by: Mario Rai MD 21-Apr-2019 13:18:51
== END 2019-04-21 12:40 | disposition short-term general hospital (02) ==
LOC: ER 16:20
DX: R07.9 Chest pain, unspecified (principal); F17.200 Nicotine dependence, unspecified, uncomplicated; I25.2 Old myocardial infarction; Z79.01 Long term (current) use of anticoagulants; Z95.1 Presence of aortocoronary bypass graft; Z98.1 Arthrodesis status
CPT/HCPCS: 93005 ×2; 96376; 99285; 96374; 96375; 36415; 82553; 82550; 85025; 85027; 85610; 80053; 81001; 84484; 71045; 93010 ×2; J2270; J1650 ×2

== ENCOUNTER → 2019-05-07 | Outpatient (CLI) | payer OTHER ==
--- NOTE | 2019-05-07 10:27 | RADIOLOGY REPORT (SQ) ---
EXAM DESCRIPTION: U/S ABDOMEN COMPLETE W/O DOP COMPLETED DATE/TIME: 05/07/2019 8:47 am REASON FOR STUDY: R10.9 UNSPECIFIED ABDOMINAL PAIN R10.9 UNSPECIFIED ABDOMINAL PAIN COMPARISON: CT scan 2017 TECHNIQUE: Dynamic and static grayscale images acquired of the abdomen and recorded on PACS. Additio nal selected color Doppler and spectral images recorded. Note: Study does not meet criteria for complete doppler/duplex scan LIMITATIONS: None. FINDINGS: PANCREAS: No masses. Visualized pancreatic duct normal caliber. LIVER: No masses. Echotexture normal. LIVER VASCULATURE: Normal directional flow of the main portal vein and hepatic veins. GALLBLADDER: No stones. Normal wall thickness. No pericholecystic fluid. ULTRASOUND-DETECTED CASAREZ'S SIGN: Negative. INTRAHEPATIC DUCTS AND COMMON DUCT: CBD and intrahepatic ducts normal caliber. No filling defects. INFERIOR VENA CAVA: Normal flow. AORTA: No aneurysm. RIGHT KIDNEY: Normal size. Normal echogenicity. No solid or suspicious masses. No hydronephros is. No calcifications. LEFT KIDNEY: Normal size. Normal echogenicity. No solid or suspicious masses. No hydronephrosi s. No calcifications. SPLEEN: Normal size. No solid masses. PERITONEAL AND PLEURAL SPACES: No ascites or effusions. OTHER: No other significant finding. IMPRESSION: NORMAL ABDOMINAL ULTRASOUND. TECHNICAL DOCUMENTATION: JOB ID: [id number]- All Rights Reserved Reading location - IP/workstation name: [email or web address]
== END ==
LOC: RAD 08:13
PROVIDERS: ATTEND Internal Medicine Gastroenterology
DX: R10.9 Unspecified abdominal pain (principal)
CPT/HCPCS: 76700

== ENCOUNTER → 2019-07-01 | Outpatient (CLI) | payer OTHER ==
--- NOTE | 2019-07-01 16:58 | RADIOLOGY REPORT (SQ) ---
EXAM DESCRIPTION: CT LUNG CANCER SCREENING COMPLETED DATE/TIME: 07/01/2019 12:56 pm REASON FOR STUDY: Z87.891 PERSONAL HISTORY OF NICOTINE DEPENDENCE Z87.891 PERSONAL HISTORY OF NICOT INE DEPENDENCE Has the patient had a Chest CT scan within the past year? N Was the patient offered tobacco cessation counseling? Y Was the patient engaged in shared decision making for this test? Y Does the patient have signs or symptoms of Lung Cancer? N Is the patient a smoker? Y How many pack years? 40 How many years since quitting smoking? 0 Patients age: 58 COMPARISON: mm TECHNIQUE: Low Dose CT scan performed of the chest without intravenous contrast for purposes of scre ening for lung cancer. Images reviewed with lung, soft tissue and bone windows. Reconstructed coron al and sagittal MPR images reviewed. All images stored on PACS. All CT scanners at this facility use dose modulation, iterative reconstruction, and/or weight based d osing when appropriate to reduce radiation dose to as low as reasonably achievable (ALARA). [facility]: Dose Right [facility]: CareDose [facility]: Dose Right [facility]: Teradose 4D [facility]: [employer] RADIATION DOSE: CT Rad equipment meets quality standard of care and radiation dose reduction techniq ues were employed. CTDIvol: 2.0 mGy. DLP: 87 mGy-cm. mGy. . LIMITATIONS: No technical limitations. FINDINGS: LUNG NODULES: Series 3, image 46, pleural-based part solid nodule measuring 10 x 4 mm. REMAINING LUNGS AND PLEURA: No pleural effusions or calcifications. No pneumothorax. Mild yasmin eptal and centrilobular emphysema. HILAR AND MEDIASTINAL STRUCTURES: No identified masses. No abnormal nodes. HEART AND VASCULAR STRUCTURES: No aortic aneurysm. No pericardial effusion. No cardiac devices. CORONARY ARTERY CALCIFICATIONS: Not Applicable. UPPER ABDOMEN: No significant findings. THYROID AND OTHER SOFT TISSUES: No masses. No adenopathy. BONES: No significant finding. OTHER: No other significant findings. IMPRESSION: PROBABLY BENIGN FINDINGS IN THE LUNGS. OTHER FINDINGS ABOVE. LUNGRADS: LUNGRADS: 3, PROBABLY BENIGN. PROBABLY BENIGN FINDING(S)- SHORT TERM FOLLOW UP SUGGESTED; INCLUDES NODULES WITH A LOW LIKELIHOOD OF BECOMING A CLINICALLY ACTIVE CANCER. MODIFIER: NONE. RECOMMENDATION: Followup LDCT in 6 months. COMMENT: CRITERIA: Solid nodule(s): ? 6 mm to < 8 mm at baseline OR new 4 mm to < 6 mm. Part solid nodule(s): ? 6 mm total diameter with solid component < 6 mm OR new < 6 mm total diameter . Non solid nodule(s) (GGN): ? [address] or new. TECHNICAL DOCUMENTATION: JOB ID: [id number] Quality ID # [id number]: Final reports with documentation of one or more dose reduction techniques (e.g., Au tomated exposure control, adjustment of the mA and/or kV according to patient size, use of iterative reconstruction technique) 2010 [facility] Reading location - IP/workstation name: [email or web address]
== END ==
LOC: RAD 12:43
PROVIDERS: ATTEND Family Medicine
DX: Z12.2 Encounter for screening for malignant neoplasm of respiratory organs (principal); Z87.891 Personal history of nicotine dependence; R91.1 Solitary pulmonary nodule
CPT/HCPCS: G0297